=== PATIENT | male | born 1940 | race Caucasian/White ===

== ENCOUNTER 2017-12-22 15:32 | Inpatient (IN) ==
--- OUTSIDE RECORDS SUMMARY | 2017-12-22 15:43 | External Medical Summary | Referral Summary ---
:1940 Author Organization [facility] Address [address] [place] [address] [address] Care Team Providers Name Role Phone Joel Greenfield Primary Care Physician Encounter VC Date(s): 05/16/15 - 05/16/15 [facility] [address] [place] [address] [phone] [place] Discharge Diagnosis: BPH without obstruction/lower urinary tract symptoms Discharge Diagnosis: BPH with obstruction/lower urinary tract symptoms Discharge Disposition: 01-Home or Self Care Attending Physician: Dirk Carroll JR, MD Admitting Physician: Dirk Carroll JR, MD Referring Physician: Joel Greenfield MD Vital Signs Most recent to oldest [Reference Range]: 1 Peripheral Pulse Rate [60-100 bpm] 73 bpm (05/16/15 9:00 AM) Blood Pressure [90-140/60-90 mmHg] 146/86 mmHg *HI* (05/16/15 9:00 AM) Problem List Condition Effective Dates Status Health Status Informant Benign essential Active hypertension(Confirmed) Benign prostatic hypertrophy (BPH) Active with incomplete bladder emptying(Confirmed) hx of right epididymal testicular Active mass/cyst(Confirmed) hx of small bilateral Active hydroceles(Confirmed) Elevated glucose(Confirmed) Active Abscess and cellulitis(Confirmed) Active Allergies, Adverse Reactions, Alerts Substance Reaction Severity Status penicillin Unknown Active Medications aspirin 81 mg oral tablet tabs, Oral, Daily, 0 Refill(s) Start Date: 05/13/14 Status: Orderedatenolol 50 mg oral tablet See Instructions, TAKE ONE TABLET BY MOUTH EVERY DAY, # 90 tabs, 3 Refill(s), TAKE ONE TABLET BY MOUTH EVERY DAY Start Date: 01/31/15 Status: OrderedLotensin 40 mg oral tablet See Instructions, TAKE ONE TABLET BY MOUTH DAILY, # 90 tabs, 3 Refill(s), TAKE ONE TABLET BY MOUTH DAILY Start Date: 01/31/15 Status: Orderedlutein Oral, Daily, 0 Refill(s) Start Date: 05/13/14 Status: OrderedMelatonin Oral, Bedtime (once a day), 0 Refill(s) Start Date: 05/13/14 Status: Orderedsaw palmetto oral capsule 0 Refill(s) Start Date: 05/13/14 Status: Orderedtamsulosin 0.4 mg oral capsule 0.4 mg 1 caps, Oral, Bedtime (once a day), # 90 caps, 3 Refill(s), Pharmacy: [facility] #[id number], 1 caps Oral Bedtime (once a day) Start Date: 05/16/15 Status: Orderedterazosin 5 mg oral capsule See Instructions, TAKE ONE CAPSULE BY MOUTH EVERY DAY, # 90 caps, 3 Refill(s), TAKE ONE CAPSULE BY MOUTH EVERY DAY Start Date: 01/31/15 Status: Ordered Results No data available for this section Immunizations Vaccine Date Refusal Reason influenza virus vaccine, inactivated1 05/03/15 influenza virus vaccine, live 07/16/12 pneumococcal 23-polyvalent vaccine 06/03/03 1Location History: [facility] Procedures Procedure Date Related Diagnosis Body Site S/P colonoscopy1 04/09/07 H/O circumcision 1with cecum biopsy showing chronic inflammation, focal hyperplastic changes; repeat 10 years Social History Social History Type Response Smoking Status Former smoker1 1Many years ago. Assessment and Plan Extracted from: Title: Ambulatory Patient Education Author: Dirk Carroll JR, MD Date: Follow Up With: Where: When: Joel Greenfield [address] [place] [address] Drive; [place], [place] [id number] Business (1) Within 3 to 5 days Comments: Follow Up With: Where: When: Dirk Sanchez[address]; [place] [address] Business (1) In 1 year 05/16/2016 Comments: Extracted from: Title: Office Visit Note Author: Dirk Carroll JR, MD Date: 05/16/15 Assessment/Plan BPH with obstruction/lower urinary tract symptoms we will change Terazosin to tamsulosin 0.4 mg at bedtime number 90 pills given 2 refills for a year. Will recheck in my office in one year or sooner if needed. Continue taking the saw palmetto. PSA a week before next visit. Ordered: Office Visit Level 3 Est 08810 BPH without obstruction/lower urinary tract symptoms Orders: tamsulosin, 0.4 mg 1 caps, Oral, Bedtime (once a day), # 90 caps, 3 Refill(s), Pharmacy: [facility] #[id number], 1 caps Oral Bedtime (once a day) Prostate Specific Antigen
--- OUTSIDE RECORDS SUMMARY | 2017-12-22 15:43 | External Medical Summary | Referral Summary ---
:1940 [facility] Address [address] [place] [address] [address] Care Team Providers Name Role Phone Joel Greenfield Primary Care Physician Encounter VC Date(s): 06/05/15 - 06/05/15 [facility] [address] [phone]- Discharge Diagnosis: Abscess and cellulitis Discharge Disposition: 01-Home or Self Care Attending Physician: Joel Greenfield MD Admitting Physician: Joel Greenfield MD Vital Signs Most recent to oldest [Reference Range]: 1 Blood Pressure [90-140/60-90 mmHg] 128/80 mmHg (06/05/15 11:12 AM) Problem List Condition Effective Dates Status [...] day), 0 Refill(s) Start Date: 05/13/14 Status: Orderedjasvir suarez oral capsule 0 Refill(s) Start Date: 05/13/14 Status: Orderedtamsulosin 0.4 mg oral capsule 0.4 mg 1 caps, Oral, Bedtime (once a day), # 90 caps, 3 Refill(s), Pharmacy: [facility] #[id number], 1 caps Oral Bedtime (once a day) [...] Extracted from: Title: Ambulatory Patient Education Author: Joel Greenfield MD Date: Infectious Disease Impetigo Impetigo is an infection of the skin, most common in babies and children. CAUSES It is caused by staphylococcal or streptococcal germs (bacteria). Impetigo can start after any damage to the skin. The damage to the skin may be from things like: Chickenpox. Scrapes. Scratches. Insect bites (common when children scratch the bite). Cuts. Nail biting or chewing. Impetigo is contagious. It can be spread from one person to another. Avoid close skin contact, or sharing towels or clothing. SYMPTOMS Impetigo usually starts out as small blisters or pustules. Then they turn into tiny yellow-crusted sores (lesions). There may also be: Large blisters. Itching or pain. Pus. Swollen lymph glands. With scratching, irritation, or non-treatment, these small areas may get larger. Scratching can cause the germs to get under the fingernails; then scratching another part of the skin can cause the infection to be spread there. DIAGNOSIS Diagnosis of impetigo is usually made by a physical exam. A skin culture (test to grow bacteria) may be done to prove the diagnosis or to help decide the best treatment. TREATMENT Mild impetigo can be treated with prescription antibiotic cream. Oral antibiotic medicine may be used in more severe cases. Medicines for itching may be used. HOME CARE INSTRUCTIONS To avoid spreading impetigo to other body areas: Keep fingernails short and clean. Avoid scratching. Cover infected areas if necessary to keep from scratching. Gently wash the infected areas with antibiotic soap and water. Soak crusted areas in warm soapy water using antibiotic soap. Gently rub the areas to remove crusts. Do not scrub. Wash hands often to avoid spread this infection. Keep children with impetigo home from school or daycare until they have used an antibiotic cream for 48 hours (2 days) or oral antibiotic medicine for 24 hours (1 day), and their skin shows significant improvement. Children may attend school or daycare if they only have a few sores and if the sores can be covered by a bandage or clothing. SEEK MEDICAL CARE IF: More blisters or sores show up despite treatment. Other family members get sores. Rash is not improving after 48 hours (2 days) of treatment. SEEK IMMEDIATE MEDICAL CARE IF: You see spreading redness or swelling of the skin around the sores. You see red streaks coming from the sores. Your child develops a fever of 100.4 F (37.2 C) or higher. Your child develops a sore throat. Your child is acting ill (lethargic, sick to their stomach). Document Released: 07/25/2001 Document Revised: 10/19/2012 Document Reviewed: 11/02/2014 ExitCare Patient Information 2015 [employer] [facility]. This information is not intended to replace advice given to you by your health care provider. Make sure you discuss any questions you have with your health care provider. No follow up information was provided. Extracted from: Title: Office Visit Note Author: Joel Greenfield MD Date: 06/05/15 Assessment/Plan Abscess and cellulitis, Other impetigo Suggest to clean the hair from the site and treat with Bactroban ointment and Cipro 500mg bid. Ordered: Office Visit Level 3 Est [id number] Orders: ciprofloxacin, 500 mg 1 tabs, Oral, BID, X 12 days, # 24 tabs, 0 Refill(s) mupirocin topical, 1 migue, Topical, TID, X 15 days, # 30 g, 0 Refill(s)
--- OUTSIDE RECORDS SUMMARY | 2017-12-22 15:43 | External Medical Summary | Referral Summary ---
:1940 Author Organization [facility] Address [address] [place] [address] [address] Care Team Providers Name Role Phone Joel Greenfield Primary Care Physician Encounter VC Date(s): 01/31/15 - 01/31/15 [facility] [phone] [place] Discharge Disposition: 01-Home or Self Care Attending Physician: Joel Greenfield MD Admitting Physician: Joel Greenfield MD Vital Signs Most recent to oldest [Reference Range]: 1 Blood Pressure [90-140/60-90 mmHg] 126/82 mmHg (01/31/15 9:13 AM) Problem List Condition Effective Dates Status [...] day), # 90 caps, 3 Refill(s), Pharmacy: [facility] #[id number], 1 caps Oral Bedtime (once a day) [...] 07/16/12 pneumococcal 23-polyvalent vaccine 06/03/03 1Location History: [place] Procedures Procedure Date Related Diagnosis Body Site S/P colonoscopy1 04/09/07 H/O circumcision 1with cecum biopsy showing chronic inflammation, focal hyperplastic changes; repeat 10 years Social History Social History Type Response Smoking Status Former smoker1 1Many years ago. Assessment and Plan Extracted from: Title: Ambulatory Patient Education Author: Joel Greenfield MD Date: Family Medicine Benign Prostatic Hypertrophy The prostate gland is part of the reproductive system of men. A normal prostate is about the size and shape of a walnut. The prostate gland produces a fluid that is mixed with sperm to make semen. This gland surrounds the urethra and is located in front of the rectum and just below the bladder. The bladder is where urine is stored. The urethra is the tube through which urine passes from the bladder to get out of the body. The prostate grows as a man ages. An enlarged prostate not caused by cancer is called benign prostatic hypertrophy (BPH). An enlarged prostate can press on the urethra. This can make it harder to pass u rine. In the early stages of enlargement, the bladder can get by with a narrowed urethra by forcing the urine through. If the problem gets worse, medical or surgical treatment may be required. This condition should be followed by your health care provider. The accumulation of urine in the bladder can cause infection. Back pressure and infection can progress to bladder damage and kidney (renal ) failure. If needed, your health care provider may refer you to a specialist in kidney and prostate disease (urologist ). CAUSES BPH is a common health problem in men older than 50 years. This condition is a normal part of aging. However, not all men will develop problems from this condition. If the enlargement grows away from th e urethra, then there will not be any compression of the urethra and resistance to urine flow.If the growth is toward the urethra and compresses it , you will experience difficulty urinating. SYMPTOMS Not able to completely empty your bladder. Getting up often during the night to urinate. Need to urinate frequently during the day. Difficultly starting urine flow. Decrease in size and strength of your urine stream. Dribbling after urination. Pain on urination (more common with infection). Inability to pass urine. This needs immediate treatment. The development of a urinary tract infection. DIAGNOSIS These tests will help your health care provider understand your problem: A thorough history and physical examination. A urination history, with the number of times you urinate, the amounts of urine, the strength of the urine stream, and the feeling of emptiness or fullness after urinating. A postvoid bladder scan that measures any amount of urine that may remain in your bladder after you finish urinating. Digital rectal exam. In a rectal exam, your health care provider checks your prostate by putting a gloved, lubricated finger into your rectum to feel the back of your prostate gland. This exam dete cts the size of your gland and abnormal lumps or growths. Exam of your urine (urinalysis ). Prostate specific antigen (PSA) screening. This is a blood test used to screen for prostate cancer. Rectal ultrasonography. This test uses sound waves to electronically produce a picture of your prostate gland. TREATMENT Once symptoms begin, your health care provider will monitor your condition. Of the men with this condition, one third will have symptoms that stabilize, one third will have symptoms that improve, and on e third will have symptoms that progress in the first year. Mild symptoms may not need treatment. Simple observation and yearly exams may be all that is required. Medicines and surgery are options for more severe problems. Your health care provider can help you make an informed decision for what is best. Two classes of medicines are available for relief of prostate symptoms: Medicines that shrink the prostate. This helps relieve symptoms. These medicines take time to work, and it may be months before any improvement is seen. Uncommon side effects include problems with sexual function. Medicines to relax the muscle of the prostate. This also relieves the obstruction by reducing any compression on the urethra.This group of medicines work much faster than those that reduce the si ze of the prostate gland. Usually, one can experience improvement in days to weeks.. Side effects can include dizziness, fatigue, lightheadedness, and retrograde ejaculation (diminished volume of ejaculate). Several types of surgical treatments are available for relief of prostate symptoms: Transurethral resection of the prostate (TURP)In this treatment, an instrument is inserted through opening at the tip of the penis. It is used to cut away pieces of the inner core of the prostat e. The pieces are removed through the same opening of the penis. This removes the obstruction and helps get rid of the symptoms. Transurethral incision (TUIP)In this procedure, small cuts are made in the prostate. This lessens the prostates pressure on the urethra. Transurethral microwave thermotherapy (TUMT)This procedure uses microwaves to create heat. The heat destroys and removes a small amount of prostate tissue. Transurethral needle ablation (TUNA)This is a procedure that uses radio frequencies to do the same as TUMT. Interstitial laser coagulation (ILC)This is a procedure that uses a laser to do the same as TUMT and TUNA. Transurethral electrovaporization (TUVP)This is a procedure that uses electrodes to do the same as the procedures listed above. SEEK MEDICAL CARE IF: You develop a fever. There is unexplained back pain. Symptoms are not helped by medicines prescribed. You develop side effects from the medicine you are taking. Your urine becomes very dark or has a bad smell. Your lower abdomen becomes distended and you have difficulty passing your urine. SEEK IMMEDIATE MEDICAL CARE IF: You are suddenly unable to urinate. This is an emergency. You should be seen immediately. There are large amounts of blood or clots in the urine. Your urinary problems become unmanageable. You develop lightheadedness, severe dizziness, or you feel faint. You develop moderate to severe low back or flank pain. You develop chills or fever. Document Released: 07/28/2006 Document Revised: 05/18/2014 Document Reviewed: 02/10/2014 [facility] Patient Information 2014 [employer] [facility]. Arterial Hypertension Arterial hypertension (high blood pressure ) is a condition of elevated pressure in your blood vessels. Hypertension over a long period of time is a risk factor for strokes, heart attacks, and heart marianna lure. It is also the leading cause of kidney (renal ) failure. CAUSES In Adults -- Over 90% of all hypertension has no known cause. This is called essential or primary hypertension. In the other 10% of people with hypertension, the increase in blood pressure is cause d by another disorder. This is called secondary hypertension . Important causes of secondary hypertension are: Heavy alcohol use. Obstructive sleep apnea. Hyperaldosterosim (Conn's syndrome). Steroid use. Chronic kidney failure. Hyperparathyroidism. Medications. Renal artery stenosis. Pheochromocytoma. Mineral's disease. Coarctation of the aorta. Scleroderma renal crisis. Licorice (in excessive amounts). Drugs (cocaine, methamphetamine). Your caregiver can explain any items above that apply to you. In Children -- Secondary hypertension is more common and should always be considered. -- Few women of childbearing age have high blood pressure. However, up to 10% of them develop hypertension of . Generally, this will not harm the woman. It may be a sign of 3 com plications of : preeclampsia, HELLP syndrome, and eclampsia. Follow up and control with medication is necessary. SYMPTOMS This condition normally does not produce any noticeable symptoms. It is usually found during a routine exam. Malignant hypertension is a late problem of high blood pressure. It may have the following symptoms: Headaches. Blurred vision. End-organ damage (this means your kidneys, heart, lungs, and other organs are being damaged). Stressful situations can increase the blood pressure. If a person with normal blood pressure has their blood pressure go up while being seen by their caregiver, this is often termed "white coat hyp ertension." Its importance is not known. It may be related with eventually developing hypertension or complications of hypertension. Hypertension is often confused with mental tension, stress, and anxiety. DIAGNOSIS The diagnosis is made by 3 separate blood pressure measurements. They are taken at least 1 week apart from each other. If there is organ damage from hypertension, the diagnosis may be made without repeat measurements. Hypertension is usually identified by having blood pressure readings: Above 140/90 mmHg measured in both arms, at 3 separate times, over a couple weeks. Over 130/80 mmHg should be considered a risk factor and may require treatment in patients with diabetes. Blood pressure readings over 120/80 mmHg are called "pre-hypertension" even in non-diabetic patients. To get a true blood pressure measurement, use the following guidelines. Be aware of the factors that can alter blood pressure readings. Take measurements at least 1 hour after caffeine. Take measurements 30 minutes after smoking and without any stress. This is another reason to quit smoking it raises your blood pressure. Use a proper cuff size. Ask your caregiver if you are not sure about your cuff size. Most home blood pressure cuffs are automatic. They will measure systolic and diastolic pressures. The systolic pressure is the pressure reading at the start of sounds. Diastolic pressure is the pre ssure at which the sounds disappear. If you are elderly, measure pressures in multiple postures. Try sitting, lying or standing. Sit at rest for a minimum of 5 minutes before taking measurements. You should not be on any medications like decongestants. These are found in many cold medications. Record your blood pressure readings and review them with your caregiver. If you have hypertension: Your caregiver may do tests to be sure you do not have secondary hypertension (see "causes" above). Your caregiver may also look for signs of metabolic syndrome. This is also called Syndrome X or Insulin Resistance Syndrome. You may have this syndrome if you have type 2 diabetes, abdominal obesit y, and abnormal blood lipids in addition to hypertension. Your caregiver will take your medical and family history and perform a physical exam. Diagnostic tests may include blood tests (for glucose, cholesterol, potassium, and kidney function), a urinalysis, or an EKG. Other tests may also be necessary depending on your condition. PREVENTION There are important lifestyle issues that you can adopt to reduce your chance of developing hypertension: Maintain a normal weight. Limit the amount of salt (sodium ) in your diet. Exercise often. Limit alcohol intake. Get enough potassium in your diet. Discuss specific advice with your caregiver. Follow a DASH diet (dietary approaches to stop hypertension). This diet is rich in fruits, vegetables, and low-fat dairy products, and avoids certain fats. PROGNOSIS Essential hypertension cannot be cured. Lifestyle changes and medical treatment can lower blood pressure and reduce complications. The prognosis of secondary hypertension depends on the underlying cause . Many people whose hypertension is controlled with medicine or lifestyle changes can live a normal, healthy life. RISKS AND COMPLICATIONS While high blood pressure alone is not an illness, it often requires treatment due to its short- and long-term effects on many organs. Hypertension increases your risk for: CVAs or strokes (cerebrovascular accident ). Heart failure due to chronically high blood pressure (hypertensive cardiomyopathy ). Heart attack (myocardial infarction ). Damage to the retina (hypertensive retinopathy ). Kidney failure (hypertensive nephropathy ). Your caregiver can explain list items above that apply to you. Treatment of hypertension can significantly reduce the risk of complications. TREATMENT For overweight patients, weight loss and regular exercise are recommended. Physical fitness lowers blood pressure. Mild hypertension is usually treated with diet and exercise. A diet rich in fruits and vegetables, fat-free dairy products, and foods low in fat and salt (sodium ) can help lower blood pressure. De creasing salt intake decreases blood pressure in a 1/3 of people. Stop smoking if you are a smoker. The steps above are highly effective in reducing blood pressure. While these actions are easy to suggest, they are difficult to achieve. Most patients with moderate or severe hypertension end up requiri ng medications to bring their blood pressure down to a normal level. There are several classes of medications for treatment. Blood pressure pills ( antihypertensives ) will lower blood pressure by their different actions. Lowering the blood pressure by 10 mmHg may decrease the risk of complications by as much as 25%. The goal of treatment is effective blood pressure control. This will reduce your risk for complications. Your caregiver will help you determine the best treatment for you according to your lifestyle. Wh at is excellent treatment for one person, may not be for you. HOME CARE INSTRUCTIONS Do not smoke. Follow the lifestyle changes outlined in the "Prevention" section. If you are on medications, follow the directions carefully. Blood pressure medications must be taken as prescribed. Skipping doses reduces their benefit. It also puts you at risk for problems. Follow up with your caregiver, as directed. If you are asked to monitor your blood pressure at home, follow the guidelines in the "Diagnosis" section above. SEEK MEDICAL CARE IF: You think you are having medication side effects. You have recurrent headaches or lightheadedness. You have swelling in your ankles. You have trouble with your vision. SEEK IMMEDIATE MEDICAL CARE IF: You have sudden onset of chest pain or pressure, difficulty breathing, or other symptoms of a heart attack. You have a severe headache. You have symptoms of a stroke (such as sudden weakness, difficulty speaking, difficulty walking). MAKE SURE YOU: Understand these instructions. Will watch your condition. Will get help right away if you are not doing well or get worse. Document Released: 07/28/2006 Document Revised: 10/19/2012 Document Reviewed: 02/25/2008 [employer] Patient Information 2014 [employer] [facility]. No follow up information was provided. Extracted from: Title: Office Visit Note Author: Joel Greenfield MD Date: 01/31/15 Assessment/Plan Benign essential hypertension Continue with the current medications. Suggest a full physical in 6 months. Ordered: Office Visit Level 4 Est 35462 Benign prostatic hypertrophy (BPH) with incomplete bladder emptying Ordered: Office Visit Level 4 Est 09221 Orders: atenolol, See Instructions, TAKE ONE TABLET BY MOUTH EVERY DAY, # 90 tabs, 3 Refill(s), TAKE ONE TABLET BY MOUTH EVERY DAY benazepril, See Instructions, TAKE ONE TABLET BY MOUTH DAILY, # 90 tabs, 3 Refill(s), TAKE ONE TABLET BY MOUTH DAILY terazosin, See Instructions, TAKE ONE CAPSULE BY MOUTH EVERY DAY, # 90 caps, 3 Refill(s), TAKE ONE CAPSULE BY MOUTH EVERY DAY
--- OUTSIDE RECORDS SUMMARY | 2017-12-22 15:43 | External Medical Summary | Referral Summary ---
:1940 Author Organization [facility] [address] Care Team Providers Name Role Phone Joel Greenfield Primary Care Physician Encounter VC Date(s): 05/07/16 - 05/07/16 [facility] [address] [phone] [place] Discharge Disposition: 01-Home or Self Care Attending Physician: Joel Greenfield MD Admitting Physician: Joel Greenfield MD Vital Signs Most recent to oldest [Reference Range]: 1 Blood Pressure [90-140/60-90 mmHg] 140/80 mmHg (05/07/16 4:07 PM) Problem List Condition Effective Dates Status Health [...] TABLET BY MOUTH EVERY DAY Start Date: 03/05/16 Status: Orderedbenazepril 40 mg oral tablet See Instructions, TAKE ONE TABLET BY MOUTH DAILY Pt needs appointment for more refills, # 90 tabs, 3 Refill(s), TAKE ONE TABLET BY MOUTH DAILY; Pt needs appointment for more refills Start Date: 03/05/16 Status: OrderedCipro 500 mg oral tablet 500 mg 1 tabs, Oral, q12hr, X 14 days, # 28 tabs, 2 Refill(s), Pharmacy: [facility] #[id number], 1tabs Oral q12hr,x14 days Start Date: 05/07/16 Stop Date: 06/18/16 Status: Orderedlutein Oral, Daily, 0 Refill(s) Start Date: 05/13/14 Status: OrderedMelatonin Oral, Bedtime (once a day), 0 Refill(s) Start Date: 05/13/14 Status: Orderedsaw palmetto oral capsule 0 Refill(s) Start Date: 05/13/14 Status: Orderedtamsulosin 0.4 mg oral capsule 0.4 mg 1 caps, Oral, Bedtime (once a day), # 90 caps, 3 Refill(s), Pharmacy: [facility] #[id number], 1 caps Oral Bedtime (once a day) Start Date: 05/07/16 Status: Orderedterazosin 5 mg oral capsule See Instructions, TAKE ONE CAPSULE BY MOUTH EVERY DAY, # 90 tabs, 3 Refill(s), TAKE ONE CAPSULE BY MOUTH EVERY DAY Start Date: 03/05/16 Status: Ordered Results No data available for [...] smoker1 1Many years ago. Assessment and Plan No data available for this section
--- OUTSIDE RECORDS SUMMARY | 2017-12-22 15:43 | External Medical Summary | Referral Summary ---
:1940 Author Organization [facility] [address] Care Team Providers Name Role Phone Joel Greenfield Primary Care Physician Encounter VC Date(s): 02/20/15 - 02/20/15 [facility] [phone] Discharge Diagnosis: Cellulitis Discharge Disposition: 01-Home or Self Care Attending Physician: Christine Carroll APRN Admitting Physician: Christine Carroll APRN Vital Signs Most recent to oldest [Reference Range]: 1 Peripheral Pulse Rate [60-100 bpm] 70 bpm (02/20/15 10:24 AM) Blood Pressure [90-140/60-90 mmHg] 124/80 mmHg (02/20/15 10:24 AM) Problem List Condition Effective Dates Status [...] day), # 90 caps, 3 Refill(s), Pharmacy: [facility] #[id number], 1 caps Oral Bedtime (once a day) [...]
--- OUTSIDE RECORDS SUMMARY | 2017-12-22 15:44 | External Medical Summary | Referral Summary ---
:1940 Author Organization [facility] [place] [address] [address] Care Team Providers Name Role Phone Bari Saenz Primary Care Physician Encounter VC Date(s): 02/17/17 - 02/17/17 [facility] [place] [address] [address] Discharge Diagnosis: Elevated glucose Discharge Diagnosis: Benign prostatic hypertrophy (BPH) with incomplete bladder emptying Discharge Diagnosis: Benign essential hypertension Discharge Diagnosis: Prostate cancer screening Discharge Diagnosis: Chronic idiopathic constipation Discharge Diagnosis: Lipid screening Discharge Disposition: 01-Home or Self Care Attending Physician: Christal Blevins PA-C Admitting Physician: Christal Blevins PA-C Vital Signs Most recent to oldest [Reference Range]: 1 Temperature Tympanic [36.6-38.1 degC] 37.1 degC (02/17/17 8:24 AM) Peripheral Pulse Rate [60-100 bpm] 68 bpm (02/17/17 8:24 AM) Blood Pressure [90-140/60-90 mmHg] 141/69 mmHg *HI* (02/17/17 8:24 AM) Problem List Condition Effective Dates Status Health Status Informant Benign essential Active hypertension(Confirmed) Benign prostatic hypertrophy (BPH) Active with incomplete bladder emptying(Confirmed) Chronic idiopathic Active constipation(Confirmed) hx of right epididymal testicular Active mass/cyst(Confirmed) hx of small bilateral Active hydroceles(Confirmed) Elevated glucose(Confirmed) Active Abscess and cellulitis(Confirmed) Active Allergies, Adverse Reactions, Alerts Substance Reaction Severity Status penicillin Unknown Active Medications aspirin 81 mg oral tablet tabs, Oral, Daily, 0 Refill(s) Start Date: 05/13/14 Status: Orderedatenolol 50 mg oral tablet See Instructions, TAKE ONE TABLET BY MOUTH EVERY DAY, # 90 tabs, 0 Refill(s), Pharmacy: [facility] #[id number], TAKE ONE TABLET BY MOUTH EVERY DAY Start Date: 02/17/17 Status: Orderedbenazepril 40 mg oral tablet See Instructions, TAKE ONE TABLET BY MOUTH DAILY, # 90 tabs, 0 Refill(s), Pharmacy: [facility]#[id number], TAKE ONE TABLET BY MOUTH DAILY Start Date: 02/17/17 Status: OrderedLinzess 145 mcg oral capsule 145 mcg 1 caps, Oral, Daily, # 30 caps, 5 Refill(s), Pharmacy: [facility] #[id number], 1 caps OralDaily Start Date: 01/21/17 Status: Orderedlutein Oral, Daily, 0 Refill(s) Start Date: 05/13/14 Status: OrderedMelatonin Oral, Bedtime (once a day), 0 Refill(s) Start Date: 05/13/14 Status: Orderedsaw palmetto oral capsule 0 Refill(s) Start Date: 05/13/14 Status: Orderedtamsulosin 0.4 mg oral capsule 0.4 mg 1 caps, Oral, Bedtime (once a day), # 90 caps, 3 Refill(s), Pharmacy: [facility] #[id number], 1 caps Oral Bedtime (once a day) Start Date: 05/07/16 Status: Orderedterazosin 5 mg oral capsule See Instructions, TAKE ONE CAPSULE BY MOUTH EVERY DAY, # 90 tabs, 0 Refill(s), Pharmacy: [facility] #[id number], TAKE ONE CAPSULE BY MOUTH EVERY DAY Start Date: 02/17/17 Status: Ordered Results No data available for this section Immunizations Given and Recorded Vaccine Date Status Refusal Reason influenza virus vaccine, inactivated 09/12/16 Given influenza virus vaccine, inactivated1 05/03/15 Recorded influenza virus vaccine, live 07/16/12 Given pneumococcal 13-valent conjugate vaccine 09/12/16 Given pneumococcal 23-polyvalent vaccine 06/03/03 Recorded 1Location History: [facility] Procedures Procedure Date Related Diagnosis Body Site S/P colonoscopy1 04/09/07 H/O circumcision 1with cecum biopsy showing chronic inflammation, focal hyperplastic changes; repeat 10 years Social History Social History Type Response Smoking Status Former smoker1 1Many years ago. Assessment and Plan Extracted from: Title: Office Visit Note- Med ck Author: Christal Blevins PA-C Date: 02/17 Assessment/Plan Benign essential hypertension BP was slightly elevated today. Recommended that he check BP's at home, and call or RTC if consistently >140/90. Continue with current medications. Will check lab at the end of this month. Ordered: atenolol, See Instructions, TAKE ONE TABLET BY MOUTH EVERY DAY, # 90 tabs, 0 Refill(s), Pharmacy: [facility] #[id number], TAKE ONE TABLET BY MOUTH EVERY DAY benazepril, See Instructions, TAKE ONE TABLET BY MOUTH DAILY, # 90 tabs, 0 Refill(s), Pharmacy: [facility] #[id number], TAKE ONE TABLET BY MOUTH DAILY terazosin, See Instructions, TAKE ONE CAPSULE BY MOUTH EVERY DAY, # 90 tabs, 0 Refill(s), Pharmacy: [facility] #[id number], TAKE ONE CAPSULE BY MOUTH EVERY DAY Comprehensive Metabolic Panel Lipid Panel Office Visit Level 4 Est 98456 Benign prostatic hypertrophy (BPH) with incomplete bladder emptying Doing well with medication. I agree that he probably does not need to follow with Urology unless something changes. Continue with current meds. Ordered: Office Visit Level 4 Est 37830 Prostate Specific Antigen Chronic idiopathic constipation Doing well with the Linzess at this time. May continue with this for now. Ordered: Office Visit Level 4 Est 60734 Elevated glucose Will also check A1C at end of this month as well. Has been slightly elevated in the past. Ordered: Comprehensive Metabolic Panel Hemoglobin A1c Office Visit Level 4 Est 53621 Lipid screening Hasn't had lipids checked inseveral years. Dr. Greenfield hadtold him that he didn't need to check it anymore. He is agreeable to check this with his other labs at the end of the month. Ordered: Lipid Panel Office Visit Level 4 Est 34089 Prostate cancer screening Will also check PSA per pt request. But not due until 03/05. Ordered: Office Visit Level 4 Est 69405 Prostate Specific Antigen Pt will be establishing with new PCP (Dr. Saenz) next week.
--- OUTSIDE RECORDS SUMMARY | 2017-12-22 15:44 | External Medical Summary | Continuity of Care Document ---
:1940 Author Organization [facility] Allergies Active Description Code Type Severity Reaction Onset Reported/ Identified Relationship Clinical to Patient Status Yes penicillin NKMA N/A Unknown 12/08/2013 Yes Penicillins Aller I Swelling 02/10/2017 gy Medications Medication Packaging Start Stop Route Dosage Sig Date Date tabs 06/28/20 Oral mg atenolol(atenolol 4 14 tabs, Oral, 50 mg oral Daily tablet) tabs 11/09/19 Oral mg benazepril(Lotens 4 15 tabs, Oral, in 40 mg oral Daily tablet) tabs Oral mg aspirin(aspirin 4 tabs, Oral, 81 mg oral Daily tablet) Oral lutein(lutein) 4 Oral, Daily caps 07/12/20 Oral mg terazosin(terazos 4 14 caps, Oral, in 5 mg oral Bedtime capsule) (once a day) 01/04/20 atenolol(atenolol 4 15 See 50 mg oral Instruction tablet) s, TAKE ONE TABLET BY MOUTH EVERY DAY, 90 tabs 02/01/20 terazosin(terazos 4 15 See in 5 mg oral Instruction capsule) s, TAKE ONE CAPSULE BY MOUTH EVERY DAY, 90 caps, 2 Refill(s) 02/01/20 benazepril(Lotens 5 15 See in 40 mg oral Instruction tablet) s, TAKE ONE TABLET BY MOUTH DAILY, 90 tabs 02/01/20 atenolol(atenolol 5 15 See 50 mg oral Instruction tablet) s, TAKE ONE TABLET BY MOUTH EVERY DAY, 90 tabs 03/05/20 atenolol(atenolol 5 16 See 50 mg oral Instruction tablet) s, TAKE ONE TABLET BY MOUTH EVERY DAY, 90 tabs, 3 Refill(s) 06/23/201 06/29/20 benazepril(Lotens 5 16 See in 40 mg oral Instruction tablet) s, TAKE ONE TABLET BY MOUTH DAILY, 90 tabs, 3 Refill(s) 03/05/20 terazosin(terazos 5 16 See in 5 mg oral Instruction capsule) s, TAKE ONE CAPSULE BY MOUTH EVERY DAY, 90 caps, 3 Refill(s) 1 tabs 03/02/20 Oral sulfamethoxazole- 5 15 1 tabs, trimethoprim(Bact Oral, BID, rim DS 800 mg-160 for 10 mg oral tablet) days, 20 tabs, 0 Refill(s) 1 tabs 03/24/20 Oral 500 mg ciprofloxacin(Cip 5 15 500 mg=1 ro 500 mg oral tabs, Oral, tablet) q12hr, for 10 days, 20 tabs, 0 Refill(s) 1 migue 05/09/20 Nasal mupirocin 5 15 1 migue, topical(Bactroban Nasal, TID, 2% nasal 15 g, 0 ointment) Refill(s) 1 caps 05/07/20 Oral 0.4 mg tamsulosin(tamsul 5 16 0.4 mg=1 osin 0.4 mg oral caps, Oral, capsule) Bedtime (once a day), 90 caps, 3 Refill(s) 1 tabs 06/17/20 Oral 500 mg ciprofloxacin(Cip 5 15 500 mg=1 ro 500 mg oral tabs, Oral, tablet) BID, for 12 days, 24 tabs, 0 Refill(s) 1 migue 06/20/20 Topical mupirocin 5 15 1 migue, topical(mupirocin Topical, 2% topical TID, for 15 ointment) days, 30 g, 0 Refill(s) 02/18/20 atenolol(atenolol 6 17 See 50 mg oral Instruction tablet) s, TAKE ONE TABLET BY MOUTH EVERY DAY, 90 tabs, 3 Refill(s) 06/18/20 benazepril(benaze 6 16 See pril 40 mg oral Instruction tablet) s, TAKE ONE TABLET BY MOUTH DAILY, 90 tabs, 3 Refill(s) 02/18/20 terazosin(terazos 6 17 See in 5 mg oral Instruction capsule) s, TAKE ONE CAPSULE BY MOUTH EVERY DAY, 90 tabs, 3 Refill(s) 1 tabs 06/18/20 Oral 500 mg ciprofloxacin(Cip 6 16 500 mg=1 ro 500 mg oral tabs, Oral, tablet) q12hr, for 14 days, 28 tabs, 2 Refill(s) 1 caps Oral 0.4 mg tamsulosin(tamsul 6 0.4 mg=1 osin 0.4 mg oral caps, Oral, capsule) Bedtime (once a day), 90 caps, 3 Refill(s) 1 tabs 09/16/19 Oral 40 mg benazepril(benaze 7 17 40 mg=1 pril 40 mg oral tabs, Oral, tablet) Daily, 90 tabs, 1 Refill(s) 0.5 mL 09/12/19 IntraMuscular pneumococcal 7 17 0.5 mL, 13-valent IntraMuscul conjugate ar, Once vaccine(Prevnar 13 intramuscular suspension) 0.5 mL 09/12/19 IntraMuscular influenza virus 7 17 0.5 mL, vaccine, IntraMuscul inactivated(influ ar, Once damien virus vaccine, inactivated) 2 caps 02/18/20 Oral 200 mg docusate(docusate 7 17 200 mg=2 sodium 100 mg caps, Oral, oral capsule) Daily, PRN: as needed for constipatio n, 20 caps, 0 Refill(s) 1 caps 02/18/20 Oral 145 mcg linaclotide(Linze 7 17 145 mcg=1 ss 145 mcg oral caps, Oral, capsule) Daily, 30 caps, 0 Refill(s) PO 5 mg Hytrin 7 .qd PO 50 mg Tenormin 7 Q24H PO 5 mg Melatonin 7 PO 81 mg Aspirin 7 .qd PO 6 mg Lutein 7 BID Saw PO 160 mg [place] 7 .qd PO 0.4 mg Flomax 7 Q24H PO 145 mcg Linzess 7 QAM PO 40 mg Benazepril HCl 7 .qd benazepril(benaze 7 See pril 40 mg oral Instruction tablet) s, TAKE ONE TABLET BY MOUTH DAILY, 90 tabs, 0 Refill(s) terazosin(terazos 7 See in 5 mg oral Instruction capsule) s, TAKE ONE CAPSULE BY MOUTH EVERY DAY, 90 tabs, 0 Refill(s) atenolol(atenolol 7 See 50 mg oral Instruction tablet) s, TAKE ONE TABLET BY MOUTH EVERY DAY, 90 tabs, 0 Refill(s) Problems Date Dx Attending Type Code Diagnosis Diagnosed By Coded 05/12/2016 Joel Greenfield Final J34.0 Abscess, furuncle F and carbuncle of nose 09/12/2016 Gen, Final I10 Essential (primary) Christal M hypertension 09/12/2016 Gen, Final N40.1 Benign prostatic Christal M hyperplasia with lower urinary tract symptoms 09/12/2016 Gen, Final Z23 Encounter for Christal M immunization 01/13/2017 Gen, Final K59.04 Chronic idiopathic Christal M constipation 02/17/2017 Gen, Final I10 Essential (primary) Christal M hypertension 02/17/2017 Gen, Final K59.04 Chronic idiopathic Christal M constipation 02/17/2017 Gen, Final N40.1 Benign prostatic Christal M hyperplasia with lower urinary tract symptoms 02/17/2017 Gen Final R73.09 Other abnormal Christal M glucose 02/17/2017 Gen, Final Z12.5 Encounter for Christal M screening for malignant neoplasm of prostate 02/17/2017 Gen, Final Z13.220 Encounter for Christal M screening for lipoid disorders 02/26/2017 Bari Saenz Final I10 Essential (primary) W hypertension 02/26/2017 Bari Saenz Final K59.04 Chronic idiopathic W constipation 02/26/2017 Bari Saenz Final N40.1 Benign prostatic W hyperplasia with lower urinary tract symptoms 02/26/2017 Bari Saenz Final R73.09 Other abnormal W glucose Procedures Code Description [place] [address] Office or 03/05/2016 other outpatient visit for the evaluation and management of an established patient, which requires at least 2 of these 3 tobar components: A detailed history; A detailed examination; Medical d Office or 05/07/2016 other outpatient visit for the evaluation and management of an established patient, which requires at least 2 of these 3 tobar components: An expanded problem focused history; An expanded prob 50221 Immunization 09/12/2016 administration (includes percutaneous, intradermal, subcutaneous, or intramuscular injections); each additional vaccine (single or combination vaccine/toxoid) (List separately in addition 29962 Influenza 09/12/2016 virus vaccine, trivalent, split virus, preservativ 12675 Pneumococcal 09/12/2016 conjugate vaccine, 13 valent (PCV13), for intramuscular use Office or 09/12/2016 other outpatient visit for the evaluation and management of an established patient, which requires at least 2 of these 3 tobar components: An expanded problem focused history; An expanded prob G0008 ADMINISTRATION 09/12/2016 OF INFLUENZA VIRUS VACCINE G0009 MC ADMIN 09/12/2016 PNEUMOVAC VACCINE 92960 Radiologic 01/13/2017 examination, abdomen; complete, including decubitus and/or erect views.. Office or 01/13/2017 other outpatient visit for the evaluation and management of an established patient, which requires at least 2 of these 3 tobar components: An expanded problem focused history; An expanded prob Office or 02/17/2017 other outpatient visit for the evaluation and management of an established patient, which requires at least 2 of these 3 tobar components: A detailed history; A detailed examination; Medical d Office or 02/26/2017 other outpatient visit for the evaluation and management of an established patient, which requires at least 2 of these 3 tobar components: A detailed history; A detailed examination; Medical d Results Test Result Range Lipid Panel - 03/05/17 07:45 Cardiac Risk 2.3 0.0-5.7 Cholesterol 157 mg/dL 0-199 HDL Cholesterol 68 mg/dL 40-84 LDL Cholesterol 79 mg/dL 0-130 Triglycerides 51 mg/dL 0-149 VLDL Cholesterol 10 mg/dL 0-28 Comprehensive Metabolic Panel (CMP) - 03/05/17 07:45 Albumin 4.1 g/dL 3.4-4.8 Alkaline Phosphatase 72 U/L 40-150 ALT (SGPT) 12 U/L 0-55 Anion Gap 6 mEq/L 3-20 AST (SGOT) 17 U/L 5-34 Bilirubin Total 0.7 mg/dL 0.2-1.2 BUN 17 mg/dL 8-26 Calcium 9.0 mg/dL 8.4-10.2 Chloride 106 mEq/L 99-111 CO2 27 mEq/L 23-31 Creatinine 0.96 mg/dL 0.72-1.25 Globulin 2.7 g/dL 1.8-4.0 Glucose 99 mg/dL 70-99 Potassium 4.6 mEq/L 3.5-5.2 Protein 6.8 g/dL 6.0-7.6 Sodium 139 mEq/L 135-144 eGFR - 03/05/17 07:45 eGFR >60 mL/min >60 PSA - 03/05/17 07:45 PSA 0.6 ng/mL 0.0-6.5 Hemoglobin A1C - 03/05/17 07:45 Hemoglobin A1C 5.9 % 4.1-5.6 Estimated Average Glucose - 03/05/17 07:45 Estimated Average Glucose 122.6 mg/dL Encounters ACCT No. Visit Discharge Status Pt. Type Provider Facility Loc./Unit Complaint Date/Time [id number] 03/05/2017 03/05/2017 DIS Outpatie [place] [facility] New lab 048 07:40:00 23:59:00 Christal [facility] [id number] 02/26/2017 02/26/2017 DIS Outpatie [place], [facility] EST WAS RFS 138 08:46:00 23:59:00 serena Ortiz PT Clinic [id number] 02/17/2017 02/17/2017 DIS Outpatie [place] [facility] BLOOD 599 08:18:00 23:59:00 Christal lyons PRESSURE MED M Clinic CHECK [id number] 01/13/2017 01/13/2017 DIS Outpatie [place] [facility] Constipation 638 09:02:00 23:59:00 Christal lyons M Clinic [id number] 09/12/2016 09/12/2016 DIS Outpatie [place] [facility] New FM BP MED CHANO 006 09:14:00 23:59:00 nt , Christal Ortiz M Clinic [id number] 05/07/2016 05/07/2016 DIS Outpatie [place], [facility] New FM TCPA 446 16:02:00 23:59:00 nt Joel Ortiz infection in Clinic nose [id number] 03/05/2016 03/05/2016 DIS Outpatie [place], [facility] New FM MED RCK 987 09:00:00 23:59:00 nt Joel [facility] [id number] 06/05/2015 06/05/2015 DIS Outpatie Greenfield, [facility] New FM infection in 844 11:03:00 23:59:00 nt Joel Cruz [facility] [id number] 05/16/2015 05/16/2015 CLS Outpatie [place], [facility] New 6 month 405 08:51:00 23:59:59 nt Dirk Ortiz Uro recheck T Clinic [id number] 03/14/2015 03/14/2015 DIS Outpatie [place], [facility] New FM sore nose 475 11:20:00 23:59:00 nt Joel [facility] [id number] 02/20/2015 02/20/2015 DIS Outpatie [place], [facility] New FM sore red nose 692 09:58:00 23:59:00 nt Christine E [facility] [id number] 01/31/2015 01/31/2015 DIS Outpatie [place], [facility] New FM MED CHECK 665 09:00:00 23:59:00 nt Joel [facility] [id number] 02/18/2017 Document [id number] 05:16:11 Registra tion [id number] 01/14/2017 Document [id number] 05:24:10 Registra tion [id number] 09/13/2016 Document [id number] 05:16:45 Registra tion [id number] 05/08/2016 Document [id number] 05:16:44 Registra tion [id number] 03/06/2016 Document [id number] 05:16:36 Registra tion [id number] 06/06/2015 Document [id number] 05:16:43 Registra tion [id number] 05/31/2015 Document [id number] 14:14:01 Registra tion [id number] 05/31/2015 Document [id number] 14:04:55 Registra tion [id number] 05/31/2015 Document [id number] 13:27:11 Registra tion [id number] 05/31/2015 Document [id number] 13:12:20 Registra tion [id number] 05/31/2015 Document [id number] 12:43:36 Registra tion [id number] 05/31/2015 Document [id number] 12:21:13 Registra tion [id number] 05/31/2015 Document [id number] 11:47:21 Registra tion [id number] 05/31/2015 Document [id number] 10:31:38 Registra tion [id number] 05/31/2015 Document [id number] 10:21:09 Registra tion [id number] 05/31/2015 Document [id number] 09:58:00 Registra tion [id number] 02/10/2017 02/10/2017 DIS OutpatiAMB. ClauCCCN SKINCOMPLA 752 13:45:00 14:56:00 nt [place] [id number] 12/22/2017 Document [id number] 15:33:00 Registra tion
--- OUTSIDE RECORDS SUMMARY | 2017-12-22 15:44 | External Medical Summary | Referral Summary ---
:1940 Author [facility] Address [address] [place] [address] [address] Care Team Providers Name Role Phone Joel Greenfield Primary Care Physician Encounter VC Date(s): 05/09/15 - 05/09/15 [facility] [address] [phone] [place] Discharge Disposition: 01-Home or Self Care Attending Physician: Joel Greenfield MD Admitting Physician: Joel Greenfield MD Vital Signs Most recent to oldest [Reference Range]: 1 Blood Pressure [90-140/60-90 mmHg] 126/74 mmHg (05/09/15 9:15 AM) Problem List Condition Effective Dates Status [...] capsule 0 Refill(s) Start Date: 05/13/14 Status: Orderedterazosin 5 mg oral capsule See Instructions, TAKE ONE CAPSULE BY MOUTH EVERY DAY, # 90 caps, 3 Refill(s), TAKE ONE CAPSULE BY MOUTH EVERY DAY Start Date: 01/31/15 Status: Ordered Results Chemistry Most recent to oldest [Reference Range]: 1 Sodium Lvl [135-144 mEq/L] 136 mEq/L (05/09/15 9:53 AM) Potassium Lvl [3.5-5.2 mEq/L] 4.5 mEq/L (05/09/15 9:53 AM) Chloride [99-111 mEq/L] 102 mEq/L (05/09/15 9:53 AM) CO2 [23-31 mEq/L] 26 mEq/L (05/09/15 9:53 AM) AGAP [3-20] 8 (05/09/15 9:53 AM) BUN [8-26 mg/dL] 14 mg/dL (05/09/15 9:53 AM) Glucose Lvl [70-99 mg/dL] 98 mg/dL (05/09/15 9:53 AM) Creatinine Lvl [0.72-1.25 mg/dL] 0.96 mg/dL (05/09/15 9:53 AM) eGFR [>60 mL/min] >60 mL/min 1 (05/09/15 9:53 AM) Calcium Lvl [8.9-10.5 mg/dL] 8.8 mg/dL *LOW* (05/09/15 9:53 AM) Albumin Lvl [3.4-4.8 gm/dL] 4.1 gm/dL (05/09/15 9:53 AM) Total Protein [6.2-8.1 gm/dL] 6.6 gm/dL (05/09/15 9:53 AM) Globulin [1.8-4.0 gm/dL] 2.5 gm/dL (05/09/15 9:53 AM) ALT [0-55 U/L] 19 U/L (05/09/15 9:53 AM) AST [5-34 U/L] 20 U/L (05/09/15 9:53 AM) Alk Phos [40-150 U/L] 71 U/L (05/09/15 9:53 AM) Bili Total [0.2-1.2 mg/dL] 0.6 mg/dL (05/09/15 9:53 AM) Hgb A1c [4.1-5.6 %] 5.6 % (05/09/15 9:53 AM) eAvg Glucose 114.0 mg/dL (05/09/15 9:53 AM) 1Result Comment: Multiply eGFR results by 1.21 for race. Immunizations Vaccine Date Refusal Reason influenza virus [...] Patient Education Author: Joel Greenfield MD Date: Obstetrics and Gynecology Hyperglycemia Hyperglycemia occurs when the glucose (sugar) in your blood is too high. Hyperglycemia can happen for many reasons, but it most often happens to people who do not know they have diabetes or are not managing their diabetes properly. CAUSES Whether you have diabetes or not, there are other causes of hyperglycemia. Hyperglycemia can occur when you have diabetes, but it can also occur in other situations that you might not be as aware of, such as: Diabetes If you have diabetes and are having problems controlling your blood glucose, hyperglycemia could occur because of some of the following reasons: Not following your meal plan. Not taking your diabetes medications or not taking it properly. Exercising less or doing less activity than you normally do. Being sick. Pre-diabetes This cannot be ignored. Before people develop Type 2 diabetes, they almost always have "pre-diabetes." This is when your blood glucose levels are higher than normal, but not yet high enough to be d iagnosed as diabetes. Research has shown that some long-term damage to the body , especially the heart and circulatory system, may already be occurring during pre-diabetes. If you take action to manage y our blood glucose when you have pre-diabetes, you may delay or prevent Type 2 diabetes from developing. Stress If you have diabetes, you may be "diet" controlled or on oral medications or insulin to control your diabetes. However, you may find that your blood glucose is higher than usual in the hospital whe ther you have diabetes or not. This is often referred to as "stress hyperglycemia." Stress can elevate your blood glucose. This happens because of hormones put out by the body during times of stress. If stress has been the cause of your high blood glucose, it can be followed regularly by your caregiver. That way he/she can make sure your hyperglycemia does not continue to get worse or progress to diabetes. Steroids Steroids are medications that act on the infection fighting system ( immune system) to block inflammation or infection. One side effect can be a rise in blood glucose. Most people can produce enough extra insulin to allow for this rise, but for those who cannot, steroids make blood glucose levels go even higher. It is not unusual for steroid treatments to "uncover" diabetes that is developing. It is not always possible to determine if the hyperglycemia will go away after the steroids are stopped. A special blood test called an A1c is sometimes done to determine if your blood glucose was elevated before the steroids were started. SYMPTOMS Thirsty. Frequent urination. Dry mouth. Blurred vision. Tired or fatigue. Weakness. Sleepy. Tingling in feet or leg. DIAGNOSIS Diagnosis is made by monitoring blood glucose in one or all of the following ways: A1c test. This is a chemical found in your blood. Fingerstick blood glucose monitoring. Laboratory results. TREATMENT First, knowing the cause of the hyperglycemia is important before the hyperglycemia can be treated. Treatment may include, but is not be limited to: Education. Change or adjustment in medications. Change or adjustment in meal plan. Treatment for an illness, infection, etc. More frequent blood glucose monitoring. Change in exercise plan. Decreasing or stopping steroids. Lifestyle changes. HOME CARE INSTRUCTIONS Test your blood glucose as directed. Exercise regularly. Your caregiver will give you instructions about exercise. Pre-diabetes or diabetes which comes on with stress is helped by exercising. Eat wholesome, balanced meals. Eat often and at regular, fixed times. Your caregiver or punchboard filling machine operator will give you a meal plan to guide your sugar intake. Being at an ideal weight is important. If needed, losing as little as 10 to 15 pounds may help improve blood glucose levels. SEEK MEDICAL CARE IF: You have questions about medicine, activity, or diet. You continue to have symptoms (problems such as increased thirst, urination, or weight gain). SEEK IMMEDIATE MEDICAL CARE IF: You are vomiting or have diarrhea. Your breath smells fruity. You are breathing faster or slower. You are very sleepy or incoherent. You have numbness, tingling, or pain in your feet or hands. You have chest pain. Your symptoms get worse even though you have been following your caregiver 's orders. If you have any other questions or concerns. Document Released: 01/21/2002 Document Revised: 10/19/2012 Document Reviewed: 11/23/2012 [facility] Patient Information 2015 [employer]. This information is not intended to replace advice given to you by your health care provider. Make sure you discuss any questions you have with your health care provider. Preventive Medicine Managing Your High Blood Pressure Blood pressure is a measurement of how forceful your blood is pressing against the abebe of the arteries. Arteries are muscular tubes within the circulatory system. Blood pressure does not stay the same . Blood pressure rises when you are active, excited, or nervous; and it lowers during sleep and relaxation. If the numbers measuring your blood pressure stay above normal most of the time, you are at ri sk for health problems. High blood pressure (hypertension) is a long-term ( chronic) condition in which blood pressure is elevated. A blood pressure reading is recorded as two numbers, such as 120 over 80 (or 120/80). The first, higher number is called the systolic pressure. It is a measure of the pressure in your arteries as the he art beats. The second, lower number is called the diastolic pressure. It is a measure of the pressure in your arteries as the heart relaxes between beats. Keeping your blood pressure in a normal range is important to your overall health and prevention of health problems, such as heart disease and stroke. When your blood pressure is uncontrolled, your hear t has to work harder than normal. High blood pressure is a very common condition in adults because blood pressure tends to rise with age. Men and women are equally likely to have hypertension but at dif ferent times in life. Before age 45, men are more likely to have hypertension. After 65 years of age, women are more likely to have it. Hypertension is especially common in Americans. This condi tion often has no signs or symptoms. The cause of the condition is usually not known. Your caregiver can help you come up with a plan to keep your blood pressure in a normal, healthy range. BLOOD PRESSURE STAGES Blood pressure is classified into four stages: normal, prehypertension, stage 1 , and stage 2. Your blood pressure reading will be used to determine what type of treatment, if any, is necessary. Appropri ate treatment options are tied to these four stages: Normal Systolic pressure (mm Hg): below 120. Diastolic pressure (mm Hg): below 80. Prehypertension Systolic pressure (mm Hg): 120 to 139. Diastolic pressure (mm Hg): 80 to 89. Stage1 Systolic pressure (mm Hg): 140 to 159. Diastolic pressure (mm Hg): 90 to 99. Stage2 Systolic pressure (mm Hg): 160 or above. Diastolic pressure (mm Hg): 100 or above. RISKS RELATED TO HIGH BLOOD PRESSURE Managing your blood pressure is an important responsibility. Uncontrolled high blood pressure can lead to: A heart attack. A stroke. A weakened blood vessel (aneurysm). Heart failure. Kidney damage. Eye damage. Metabolic syndrome. Memory and concentration problems. HOW TO MANAGE YOUR BLOOD PRESSURE Blood pressure can be managed effectively with lifestyle changes and medicines (if needed). Your caregiver will help you come up with a plan to bring your blood pressure within a normal range. Your plan should include the following: Education Read all information provided by your caregivers about how to control blood pressure. Educate yourself on the latest guidelines and treatment recommendations. New research is always being done to further define the risks and treatments for high blood pressure. Lifestylechanges Control your weight. Avoid smoking. Stay physically active. Reduce the amount of salt in your diet. Reduce stress. Control any chronic conditions, such as high cholesterol or diabetes. Reduce your alcohol intake. Medicines Several medicines (antihypertensive medicines) are available, if needed, to bring blood pressure within a normal range. Communication Review all the medicines you take with your caregiver because there may be side effects or interactions. Talk with your caregiver about your diet, exercise habits, and other lifestyle factors that may be contributing to high blood pressure. See your caregiver regularly. Your caregiver can help you create and adjust your plan for managing high blood pressure. RECOMMENDATIONS FOR TREATMENT AND FOLLOW-UP The following recommendations are based on current guidelines for managing high blood pressure in non adults. Use these recommendations to identify the proper follow-up period or treatment optio n based on your blood pressure reading. You can discuss these options with your caregiver. Systolic pressure of 120 to 139 or diastolic pressure of 80 to 89: Follow up with your caregiver as directed. Systolic pressure of 140 to 160 or diastolic pressure of 90 to 100: Follow up with your caregiver within 2 months. Systolic pressure above 160 or diastolic pressure above 100: Follow up with your caregiver within 1 month. Systolic pressure above 180 or diastolic pressure above 110: Consider antihypertensive therapy; follow up with your caregiver within 1 week. Systolic pressure above 200 or diastolic pressure above 120: Begin antihypertensive therapy; follow up with your caregiver within 1 week. Document Released: 04/21/2013 Document Reviewed: 04/21/2013 [facility] Patient Information 2015 [employer]. This information is not intended to replace advice given to you by your health care provider. Make sure you discuss any questions you have with your health care provider. No follow up information was provided. Extracted from: Title: Office Visit Note Author: Joel Greenfield MD Date: 05/09/15 Assessment/Plan Benign essential hypertension Continue with the current medications. Lab today which is nonfasting. Ordered: Comprehensive Metabolic Panel Office Visit Level 3 Est 02237 Benign prostatic hypertrophy (BPH) with incomplete bladder emptying Ordered: Office Visit Level 3 Est 36995 Elevated glucose Ordered: Hemoglobin A1c Office Visit Level 3 Est 93611
--- OUTSIDE RECORDS SUMMARY | 2017-12-22 15:44 | External Medical Summary | Referral Summary ---
:1940 Author Organization [facility] [address] Care Team Providers Name Role Phone Bari Saenz Primary Care Physician Encounter VC Date(s): 02/26/17 - 02/26/17 [facility] [phone] [place] Discharge Diagnosis: Benign prostatic hypertrophy (BPH) with incomplete bladder emptying Discharge Diagnosis: Elevated glucose Discharge Diagnosis: Chronic idiopathic constipation Discharge Diagnosis: Benign essential hypertension Discharge Disposition: 01-Home or Self Care Attending Physician: Bari Saenz MD Admitting Physician: Bari Saenz MD Vital Signs Most recent to oldest [Reference Range]: 1 Blood Pressure [90-140/60-90 mmHg] 160/80 mmHg *HI* (02/26/17 8:56 AM) Problem List Condition Effective Dates Status [...] DAY, # 90 tabs, 0 Refill(s), Pharmacy: [facility] #[id number], TAKE ONE TABLET BY MOUTH EVERY DAY Start Date: 02/17/17 Status: Orderedbenazepril 40 mg oral tablet See Instructions, TAKE ONE TABLET BY MOUTH DAILY, # 90 tabs, 0 Refill(s), Pharmacy: [facility]#[id number], TAKE ONE TABLET BY MOUTH DAILY Start Date: 02/17/17 Status: OrderedLinzess 145 mcg oral capsule 145 mcg 1 caps, Oral, Daily, # 30 caps, 5 Refill(s), Pharmacy: [facility] #[id number], 1 caps OralDaily Start Date: 01/21/17 Status: Orderedlutein Oral, Daily, 0 Refill(s) Start Date: 05/13/14 Status: OrderedMelatonin Oral, Bedtime (once a day), 0 Refill(s) Start Date: 05/13/14 Status: Orderedsaw palmetto oral capsule 0 Refill(s) Start Date: 05/13/14 Status: Orderedtamsulosin 0.4 mg oral capsule 0.4 mg 1 caps, Oral, Bedtime (once a day), # 90 caps, 1 Refill(s), Pharmacy: [facility] #[id number], 1 caps Oral Bedtime (once a day) Start Date: 02/26/17 Status: Orderedterazosin 5 mg oral capsule See Instructions, TAKE ONE CAPSULE BY MOUTH EVERY DAY, # 90 tabs, 0 Refill(s), Pharmacy: [facility] #[id number], TAKE ONE CAPSULE BY MOUTH EVERY DAY Start Date: 02/17/17 Status: Ordered Results No data available for this section Immunizations Given and Recorded Vaccine Date Status Refusal Reason influenza virus vaccine, inactivated 09/12/16 Given influenza virus vaccine, inactivated1 05/03/15 Recorded influenza virus vaccine, live 07/16/12 Given pneumococcal 13-valent conjugate vaccine 09/12/16 Given pneumococcal 23-polyvalent vaccine 06/03/03 Recorded 1Location History: [facility] Procedures Procedure Date Related Diagnosis Body Site S/P colonoscopy1 04/09/07 H/O circumcision 1with cecum biopsy showing chronic inflammation, focal hyperplastic changes; repeat 10 years Social History Social History Type Response Smoking Status Former smoker1 1Many years ago. Assessment and Plan Extracted from: Title: Ambulatory Patient Education Author: Bari Saenz MD Date: Home Health Care Constipation, Adult Constipation is when a person has fewer than three bowel movements a week, has difficulty having a bowel movement, or has stools that are dry, hard, or larger than normal. As people grow older, constipa tion is more common. A low-fiber diet, not taking in enough fluids, and taking certain medicines may make constipation worse. CAUSES Certain medicines, such as antidepressants, pain medicine, iron supplements , antacids, and water pills. Certain diseases, such as diabetes, irritable bowel syndrome (IBS), thyroid disease, or depression. Not drinking enough water. Not eating enough fiber-rich foods. Stress or travel. Lack of physical activity or exercise. Ignoring the urge to have a bowel movement. Using laxatives too much. SIGNS AND SYMPTOMS Having fewer than three bowel movements a week. Straining to have a bowel movement. Having stools that are hard, dry, or larger than normal. Feeling full or bloated. Pain in the lower abdomen. Not feeling relief after having a bowel movement. DIAGNOSIS Your health care provider will take a medical history and perform a physical exam. Further testing may be done for severe constipation. Some tests may include: A barium enema X-ray to examine your rectum, colon, and, sometimes, your small intestine. A sigmoidoscopy to examine your lower colon. A colonoscopy to examine your entire colon. TREATMENT Treatment will depend on the severity of your constipation and what is causing it. Some dietary treatments include drinking more fluids and eating more fiber- rich foods. Lifestyle treatments may include regular exercise. If these diet and lifestyle recommendations do not help, your health care provider may recommend taking zrqx-yle-uqwpjjg laxative medicines to help you have bowel movements. Prescript ion medicines may be prescribed if smkb-lls-xxhiiej medicines do not work. HOME CARE INSTRUCTIONS Eat foods that have a lot of fiber, such as fruits, vegetables, whole grains, and beans. Limit foods high in fat and processed sugars, such as mongolian fries, hamburgers, cookies, candies, and soda. A fiber supplement may be added to your diet if you cannot get enough fiber from foods. Drink enough fluids to keep your urine clear or pale yellow. Exercise regularly or as directed by your health care provider. Go to the restroom when you have the urge to go. Do not hold it. Only take atxu-ghp-ylvcffq or prescription medicines as directed by your health care provider. Do not take other medicines for constipation without talking to your health care provider first. SEEK IMMEDIATE MEDICAL CARE IF: You have bright red blood in your stool. Your constipation lasts for more than 4 days or gets worse. You have abdominal or rectal pain. You have thin, pencil-like stools. You have unexplained weight loss. MAKE SURE YOU: Understand these instructions. Will watch your condition. Will get help right away if you are not doing well or get worse. This information is not intended to replace advice given to you by your health care provider. Make sure you discuss any questions you have with your health care provider. Document Released: 04/25/2005 Document Revised: 08/18/2015 Document Reviewed: 05/09/2014 [employer] Patient Education 2016 [employer] No follow up information was provided. Extracted from: Title: Office Visit Note Author: Bari Saenz MD Date: 02/26/17 Assessment/Plan Benign essential hypertension This issue was reviewed, appears stable, and current therapy continued except as mentioned. Appropriate lab was reviewed from the most recent appropriate entry and lab was ordered if needed in the c jaiden/nursing orders, and follow up recommended generally in 90 days and no later then six months. The patient reports their blood pressure has been stable at home and is not having any significant or related problems. There has been no chest pain, chest pressure, soa/maddox. The patient had an elevated blood pressure reading and is to monitor their bp and call with a report if consistently > 140/90. BP good at home. Benign prostatic hypertrophy (BPH) with incomplete bladder emptying This issue was reviewed, appears stable, and current therapy continued except as mentioned. Appropriate lab was reviewed from the most recent appropriate entry and lab was ordered if needed in the c jaiden/nursing orders, and follow up recommended generally in 90 days and no later then six months. Happy with the flomax. Chronic idiopathic constipation This issue was reviewed, appears stable, and current therapy continued except as mentioned. Appropriate lab was reviewed from the most recent appropriate entry and lab was ordered if needed in the c jaiden/nursing orders, and follow up recommended generally in 90 days and no later then six months. Happy with the linzess. IMPRESSION: No acute abnormalities in the abdomen. There is a moderate amount of stool present in the colon. [1] Elevated glucose This issue was reviewed, appears stable, and current therapy continued except as mentioned. Appropriate lab was reviewed from the most recent appropriate entry and lab was ordered if needed in the c jaiden/nursing orders, and follow up recommended generally in 90 days and no later then six months. Lab pending.
--- OUTSIDE RECORDS SUMMARY | 2017-12-22 15:44 | External Medical Summary | Referral Summary ---
:1940 Author Organization [facility] [address] Care Team Providers Name Role Phone Joel Greenfield Primary Care Physician Encounter VC Date(s): 01/13/17 - 01/13/17 [facility] [address]- Discharge Diagnosis: Chronic idiopathic constipation Discharge Disposition: 01-Home or Self Care Attending Physician: Christal Blevins PA-C Admitting Physician: Christal Blevins PA-C Vital Signs Most recent to oldest [Reference Range]: 1 Temperature Tympanic [36.6-38.1 degC] 36.8 degC (01/13/17 9:09 AM) Peripheral Pulse Rate [60-100 bpm] 75 bpm (01/13/17 9:09 AM) Blood Pressure [90-140/60-90 mmHg] 130/70 mmHg (01/13/17 9:09 AM) SpO2 93 % (01/13/17 9:09 AM) Problem List Condition Effective Dates Status [...] TABLET BY MOUTH DAILY, # 90 tabs, eRx: [facility] #[id number] Start Date: 09/16/16 Status: Ordereddocusate sodium 100 mg oral capsule 200 mg 2 caps, Oral, Daily, as needed for constipation, # 20 caps, 0 Refill(s) Start Date: 01/13/17 Status: OrderedLinzess 145 mcg oral capsule 145 mcg 1 caps, Oral, Daily, # 30 caps, 0 Refill(s), samples given to patient ( Rx) Start Date: 01/13/17 Status: Orderedlutein Oral, Daily, 0 Refill(s) Start Date: 05/13/14 Status: OrderedMelatonin Oral, Bedtime (once a day), 0 Refill(s) Start Date: 05/13/14 Status: Orderedsaw palmetto oral capsule 0 Refill(s) Start Date: 05/13/14 Status: Orderedtamsulosin 0.4 mg oral capsule 0.4 mg 1 caps, Oral, Bedtime (once a day), # 90 caps, 3 Refill(s), Pharmacy: [facility] #[id number], 1 caps Oral Bedtime (once a day) [...] Plan Extracted from: Title: Office Visit Note- Chronic Author: Christal Blevins PA-C Date: 01/13 constipation Assessment/Plan Chronic idiopathic constipation We talked about his options. He does not want another colonoscopy. Will have him stop the OTC's, and try him on Linzess. Gave samples of the 145mcg caps to take daily on empty stomach. Talked about shahnaz franco SE's. He is to call and let us know how it works for him. May send script if working and covered. He is to continue with exercise and sipping on fluids. Try not to excess 2L per day. Will also get KUB today. Ordered: linaclotide, 145 mcg 1 caps, Oral, Daily, # 30 caps, 0 Refill(s), samples given to patient (Rx) Office Visit Level 3 Est 10053
--- OUTSIDE RECORDS SUMMARY | 2017-12-22 15:44 | External Medical Summary | Referral Summary ---
:1940 Author Organization [facility] Address [address] [place] [address] [address] Care Team Providers Name Role Phone Joel Greenfield Primary Care Physician Encounter VC Date(s): 05/16/15 - 05/16/15 [facility] [address] [place] [address] [address] [place] Discharge Diagnosis: BPH [...] day), 0 Refill(s) Start Date: 05/13/14 Status: Orderedmupirocin 2% topical ointment 1 migue, Topical, TID, X 15 days, # 30 g, 0 Refill(s) Start Date: 06/05/15 Stop Date: 06/20/15 Status: Orderedsaw palmetto oral capsule 0 Refill(s) Start Date: 05/13/14 Status: Orderedtamsulosin 0.4 mg oral capsule 0.4 mg 1 caps, Oral, Bedtime (once a day), # 90 caps, 3 Refill(s), Pharmacy: [facility] #[id number], 1 caps Oral Bedtime (once a day) [...] Follow Up With: Where: When: Joel Greenfield [address] [place] [address] Drive; [place] [address] Business (1) Within 3 to 5 days Comments: Follow Up With: Where: When: Dirk Carroll [address] [place] [address] Drive; [place] [address] Business (1) In 1 year [...] visit. Ordered: Office Visit Level 3 Est 66553 BPH without obstruction/lower urinary tract symptoms Orders: tamsulosin, 0.4 mg 1 caps, Oral, Bedtime (once a day), # 90 caps, 3 Refill(s), Pharmacy: [facility] #[id number], 1 caps Oral Bedtime (once a day) Prostate Specific Antigen
--- OUTSIDE RECORDS SUMMARY | 2017-12-22 15:44 | External Medical Summary | Referral Summary ---
:1940 Author [facility] Address [address] [place] [address] [address] Care Team Providers Name Role Phone Joel Greenfield Primary Care Physician Encounter VC Date(s): 06/05/15 - 06/05/15 [facility] [address] [address]- Discharge Diagnosis: Abscess and cellulitis Discharge Disposition: [...] MOUTH EVERY DAY Start Date: 01/31/15 Status: OrderedCipro 500 mg oral tablet 500 mg 1 tabs, Oral, BID, X 12 days, # 24 tabs, 0 Refill(s) Start Date: 06/05/15 Stop Date: 06/17/15 Status: OrderedLotensin 40 mg oral tablet See [...] day), # 90 caps, 3 Refill(s), Pharmacy: [facility] #[id number], 1 caps Oral Bedtime (once a day) [...] 07/25/2001 Document Revised: 10/19/2012 Document Reviewed: 11/02/2014 [facility] Patient Information 2015 [facility]. This information is not intended to replace [...] bid. Ordered: Office Visit Level 3 Est 26334 Orders: ciprofloxacin, 500 mg 1 tabs, Oral, BID, X 12 days, # 24 tabs, 0 Refill(s) mupirocin topical, 1 migue, Topical, TID, X 15 days, # 30 g, 0 Refill(s)
--- OUTSIDE RECORDS SUMMARY | 2017-12-22 15:44 | External Medical Summary | Referral Summary ---
:1940 Author Organization [facility] Address [address] [place] [address] [address] Care Team Providers Name Role Phone Joel Greenfield Primary Care Physician Encounter VC Date(s): 05/16/15 - 05/16/15 [facility] [address] [place] [address] [address] [place] Discharge Diagnosis: BPH [...] day), # 90 caps, 3 Refill(s), Pharmacy: [facility] #[id number], 1 caps Oral Bedtime (once a day) [...] Follow Up With: Where: When: Joel Greenfield [address] [place] [address] Drive; [place] [address] Business (1) Within 3 to 5 days Comments: Follow Up With: Where: When: Dirk Carroll [address] [place] [address] Drive; [place] [address] Business (1) In 1 year [...] visit. Ordered: Office Visit Level 3 Est 51616 BPH without obstruction/lower urinary tract symptoms Orders: tamsulosin, 0.4 mg 1 caps, Oral, Bedtime (once a day), # 90 caps, 3 Refill(s), Pharmacy: [facility] #[id number], 1 caps Oral Bedtime (once a day) Prostate Specific Antigen
--- OUTSIDE RECORDS SUMMARY | 2017-12-22 15:44 | External Medical Summary | Referral Summary ---
:1940 Author [facility] Address [address] [place] [address] [address] Care Team Providers Name Role Phone Joel Greenfield Primary Care Physician Encounter VC Date(s): 03/14/15 - 03/14/15 [facility] [address] [address] [place] Discharge Disposition: 01-Home or Self Care Attending Physician: Joel Greenfield MD Admitting Physician: Joel Greenfield MD Vital Signs Most recent to oldest [Reference Range]: 1 Blood Pressure [90-140/60-90 mmHg] 140/70 mmHg (03/14/15 11:40 AM) Problem List Condition Effective Dates Status [...] 0 Refill(s) Start Date: 05/13/14 Status: Orderedjasvir suaerz oral capsule 0 Refill(s) Start Date: 05/13/14 Status: Orderedtamsulosin 0.4 mg oral capsule 0.4 mg 1 caps, Oral, Bedtime (once a day), # 90 caps, 3 Refill(s), Pharmacy: [facility] #[id number], 1 caps Oral Bedtime (once a day) [...] Patient Education Author: Joel Greenfield MD Date: 03/16/15 Home Health Care Cellulitis Cellulitis is an infection of the skin and the tissue beneath it. The infected area is usually red and tender. Cellulitis occurs most often in the arms and lower legs. CAUSES Cellulitis is caused by bacteria that enter the skin through cracks or cuts in the skin. The most common types of bacteria that cause cellulitis are Staphylococcus and Streptococcus. SYMPTOMS Redness and warmth. Swelling. Tenderness or pain. Fever. DIAGNOSIS Your caregiver can usually determine what is wrong based on a physical exam. Blood tests may also be done. TREATMENT Treatment usually involves taking an antibiotic medicine. HOME CARE INSTRUCTIONS Take your antibiotics as directed. Finish them even if you start to feel better. Keep the infected arm or leg elevated to reduce swelling. Apply a warm cloth to the affected area up to 4 times per day to relieve pain. Only take [id number] or prescription medicines for pain, discomfort , or fever as directed by your caregiver. Keep all follow-up appointments as directed by your caregiver. SEEK MEDICAL CARE IF: You notice red streaks coming from the infected area. Your red area gets larger or turns dark in color. Your bone or joint underneath the infected area becomes painful after the skin has healed. Your infection returns in the same area or another area. You notice a swollen bump in the infected area. You develop new symptoms. SEEK IMMEDIATE MEDICAL CARE IF: You have a fever. You feel very sleepy. You develop vomiting or diarrhea. You have a general ill feeling (malaise) with muscle aches and pains. MAKE SURE YOU: Understand these instructions. Will watch your condition. Will get help right away if you are not doing well or get worse. Document Released: 05/07/2006 Document Revised: 01/26/2013 Document Reviewed: 10/12/2012 [facility] Patient Information 2015 [employer]. This information is not intended to replace advice given to you by your health care provider. Make sure you discuss any questions you have with your health care provider. No follow up information was provided. Extracted from: Title: Office Visit Note Author: Joel Greenfield MD Date: 03/14/15 Assessment/Plan Abscess and cellulitis Rx for Cipro 500mg bid for 10-14 days. Bactroban to the inside of the nose. Follow up as needed. Hot packs. Ordered: Office Visit Level 3 Est 31837
--- OUTSIDE RECORDS SUMMARY | 2017-12-22 15:44 | External Medical Summary | Referral Summary ---
:1940 Author Organization [facility] Address [address] [place] [address] [address] Care Team Providers Name Role Phone Joel Greenfield Primary Care Physician Encounter VC Date(s): 05/16/15 - 05/16/15 [facility] [address] [place] [address] [address] [place] Discharge Diagnosis: BPH [...] Refill(s), Pharmacy: [facility] #[id number], 1 caps Oral Bedtime (once a day) [...] Follow Up With: Where: When: Joel Greenfield [address] [place] [address] Drive; [address] [place], [place] [id number] Business (1) Within 3 to 5 days Comments: Follow Up With: Where: When: Dirk Sanchez[address]; [place] [address] Business (1) In 1 year [...] visit. Ordered: Office Visit Level 3 Est 90122 BPH without obstruction/lower urinary tract symptoms Orders: tamsulosin, 0.4 mg 1 caps, Oral, Bedtime (once a day), # 90 caps, 3 Refill(s), Pharmacy: [facility] #[id number], 1 caps Oral Bedtime (once a day) Prostate Specific Antigen
--- OUTSIDE RECORDS SUMMARY | 2017-12-22 15:44 | External Medical Summary | Referral Summary ---
:1940 Author Organization [facility] [address] Care Team Providers Name Role Phone Joel Greenfield Primary Care Physician Encounter VC Date(s): 09/12/16 - 09/12/16 [facility] [address] [place] Discharge Diagnosis: Benign essential hypertension Discharge Diagnosis: Encounter for immunization Discharge Diagnosis: Benign prostatic hypertrophy (BPH) with incomplete bladder emptying Discharge Disposition: 01-Home or Self Care Attending Physician: Christal Blevins PA-C Admitting Physician: Christal Blevins PA-C Vital Signs Most recent to oldest [Reference Range]: 1 Temperature Tympanic [36.6-38.1 degC] 35.8 degC *LOW* (09/12/16 9:20 AM) Peripheral Pulse Rate [60-100 bpm] 80 bpm (09/12/16 9:20 AM) Blood Pressure [90-140/60-90 mmHg] 142/78 mmHg *HI* (09/12/16 9:20 AM) Problem List Condition Effective Dates Status [...] 03/05/16 Status: Orderedbenazepril 40 mg oral tablet 40 mg 1 tabs, Oral, Daily, # 90 tabs, 1 Refill(s), Pharmacy: [facility] # [id number], 1 tabs Oral Daily Start Date: 09/12/16 Status: Orderedlutein Oral, Daily, 0 Refill(s) Start Date: 05/13/14 Status: OrderedMelatonin Oral, Bedtime (once a day), 0 Refill(s) Start Date: 05/13/14 Status: Orderedsaw palmetto oral capsule 0 Refill(s) Start Date: 05/13/14 Status: Orderedtamsulosin 0.4 mg oral capsule 0.4 mg 1 caps, Oral, Bedtime (once a day), # 90 caps, 3 Refill(s), Pharmacy: [facility] #[id number], 1 caps Oral Bedtime (once a day) [...] Med ck Author: Christal Blevins PA-C Date: Assessment/Plan Benign essential hypertension BP is mildly elevated today, but since he is a fairly healthy 75 year old, I would have a goal BP of <150/90. He does not want to change meds. He does not want labs done today, but agrees to do them in 6 months. Med ck appt at that time also. Ordered: benazepril, 40 mg 1 tabs, Oral, Daily, # 90 tabs, 1 Refill(s), Pharmacy: [facility] #[id number], 1 tabs Oral Daily Office Visit Level 3 Est 87676 Benign prostatic hypertrophy (BPH) with incomplete bladder emptying No urinary issues. Continue with medications at this time. Recheck in 6 months or sooner if any issues. Ordered: Office Visit Level 3 Est 34482 Encounter for immunization,Immunization due Influenza vaccination given today per pt request. D/w him that he needs to have this done in the fall, before flu season. Also updated on Prevnar 13 today. ( also needs both of these vaccinations, and advised her to see the nurse for these). Ordered: Office Visit Level 3 Est 98892
--- OUTSIDE RECORDS SUMMARY | 2017-12-22 15:44 | External Medical Summary | Referral Summary ---
:1940 Author Organization [facility] Address [address] [place] [address] [address] Care Team Providers Name Role Phone Joel Greenfield Primary Care Physician Encounter VC Date(s): 03/05/16 - 03/05/16 [facility] [address] [address] [place] Discharge Disposition: 01-Home or Self Care Attending Physician: Joel Greenfield MD Admitting Physician: Joel Greenfield MD Vital Signs Most recent to oldest [Reference Range]: 1 Blood Pressure [90-140/60-90 mmHg] 144/76 mmHg *HI* (03/05/16 9:13 AM) Problem List Condition Effective Dates [...] for more refills Start Date: 03/05/16 Status: Orderedlutein Oral, Daily, 0 Refill(s) Start Date: 05/13/14 Status: OrderedMelatonin Oral, Bedtime (once a day), 0 Refill(s) Start Date: 05/13/14 Status: Orderedsaw palmetto oral capsule 0 Refill(s) Start Date: 05/13/14 Status: Orderedtamsulosin 0.4 mg oral capsule 0.4 mg 1 caps, Oral, Bedtime (once a day), # 90 caps, 3 Refill(s), Pharmacy: [facility] #[id number], 1 caps Oral Bedtime (once a day) Start Date: 05/16/15 Status: Orderedterazosin 5 mg oral capsule See Instructions, TAKE ONE CAPSULE BY MOUTH EVERY DAY, # 90 tabs, 3 Refill(s), TAKE ONE CAPSULE BY MOUTH EVERY DAY Start Date: 03/05/16 Status: Ordered Results Chemistry Most recent to oldest [Reference Range]: 1 Sodium Lvl [135-144 mEq/L] 138 mEq/L (03/05/16 10:00 AM) Potassium Lvl [3.5-5.2 mEq/L] 4.5 mEq/L (03/05/16 10:00 AM) Chloride [99-111 mEq/L] 105 mEq/L (03/05/16 10:00 AM) CO2 [23-31 mEq/L] 27 mEq/L (03/05/16 10:00 AM) AGAP [3-20] 6 (03/05/16 10:00 AM) BUN [8-26 mg/dL] 16 mg/dL (03/05/16 10:00 AM) Glucose Lvl [70-99 mg/dL] 98 mg/dL (03/05/16 10:00 AM) Creatinine Lvl [0.72-1.25 mg/dL] 1.03 mg/dL (03/05/16 10:00 AM) eGFR [>60 mL/min] >60 mL/min 1 (03/05/16 10:00 AM) Calcium Lvl [8.9-10.5 mg/dL] 8.9 mg/dL (03/05/16 10:00 AM) Albumin Lvl [3.4-4.8 gm/dL] 4.2 gm/dL (03/05/16 10:00 AM) Total Protein [6.0-7.6 gm/dL] 6.7 gm/dL 2 (03/05/16 10:00 AM) Globulin [1.8-4.0 gm/dL] 2.5 gm/dL (03/05/16 10:00 AM) ALT [0-55 U/L] 13 U/L (03/05/16 10:00 AM) AST [5-34 U/L] 17 U/L (03/05/16 10:00 AM) Alk Phos [40-150 U/L] 73 U/L (03/05/16 10:00 AM) Bili Total [0.2-1.2 mg/dL] 0.5 mg/dL (03/05/16 10:00 AM) PSA (wihout Reflex Free) [0.0-6.5 ng/mL] 0.7 ng/mL 3 (03/05/16 10:00 AM) Hgb A1c [4.1-5.6 %] 5.7 % *HI* (03/05/16 10:00 AM) eAvg Glucose 116.9 mg/dL (03/05/16 10:00 AM) 1Result Comment: Multiply eGFR results by 1.21 for race.2Result Comment: Please note new reference range for adult Protein.3Result Comment: AUA PSA Best Practice Guidelines: Age-Adjusted PSA Values by Ethnic Group Age Range Asians - Caucasians Americans 40-49 0-2.0 0-2.0 0-2.5 50-59 0-3.0 0-4.0 0-3.5 60-69 0-4.0 0-4.5 0-4.5 70-79 0-5.0 0-5.5 0-6.5 Immunizations Vaccine Date Refusal Reason influenza virus [...] Author: Joel Greenfield MD Date: Family Medicine Prostate-Specific Antigen Test WHY AM I HAVING THIS TEST? The prostate-specific antigen (PSA) test is performed to determine how much PSA you have in your blood. PSA is a type of protein that is normally present in the prostate gland. Certain conditions can cause PSA blood levels to increase , such as: Infection in the prostate (prostatitis). Enlargement of the prostate (hypertrophy). Prostate cancer. Because PSA levels increase greatly from prostate cancer, this test can be used to confirm a diagnosis of prostate cancer. It may also be used to monitor treatment for prostate cancer and to watch for a return of prostate cancer after treatment has finished. This test has a very high false-positive rate. Therefore, routine PSA screening for all men is no longer recommended. A false-positive result is incorrect because it indicates a condition or finding is present when it is not. WHAT KIND OF SAMPLE IS TAKEN? A blood sample is required for this test. It is usually collected by inserting a needle into a vein or by sticking a finger with a small needle. HOW DO I PREPARE FOR THE TEST? There is no preparation required for this test. However, there are factors that can affect the results of a PSA test. To get the most accurate results: Avoid having a rectal exam within several hours before having your blood drawn for this test. Avoid having any procedures performed on the prostate gland within 6 weeks of having this test. Avoid ejaculating within 24 hours of having this test. Tell your health care provider if you had a recent urinary tract infection (UTI). Tell your health care provider if you are taking medicines to assist with hair growth, such as finasteride. Tell your health care provider if you have been exposed to a medicine called diethylstillbesterol. Let your health care provider know if any of these factors apply to you. You may be asked to reschedule the test. WHAT ARE THE REFERENCE RANGES? Reference ranges are established after testing a large group of people. Reference ranges may vary among different people, labs, and hospitals. It is your responsibility to obtain your test results. Ask the lab or department performing the test when and how you will get your results. Low: 02.5 ng/mL. Slightly to moderately elevated: 2.610.0 ng/mL. Moderately elevated: 10.019.9 ng/mL. Significantly elevated: 20 ng/mL or greater. WHAT DO THE RESULTS MEAN? PSA test results greater than 4 ng/mL are found in the majority of men with prostate cancer. If your test result is above this level, this can indicate an increased risk for prostate cancer. Increased P SA levels can also indicate other health conditions. Talk with your health care provider to discuss your results, treatment options , and if necessary, the need for more tests. Talk with your health care provider if you have any questions about your results. This information is not intended to replace advice given to you by your health care provider. Make sure you discuss any questions you have with your health care provider. Document Released: 08/30/2005 Document Revised: 08/18/2015 Document Reviewed: 12/21/2014 [facility] Patient Information 2016 [employer]. Preventive Medicine Heart Disease Prevention Heart disease is a leading cause of . There are many things you can do to help prevent heart disease. BE PHYSICALLY ACTIVE Physical activity is good for your heart. It helps control your blood pressure , cholesterol levels, and weight. Try to be physically active every day. Ask your health care provider what activities are best for you. BE A HEALTHY WEIGHT Extra weight can strain your heart and affect your blood pressure and cholesterol levels. Lose weight with diet and exercise if recommended by your health care provider. EAT HEART-HEALTHY FOODS Follow a healthy eating plan as recommended by your health care provider or dietitian. Heart-healthy foods include: High-fiber foods. These include oat bran, oatmeal, and whole-grain breads and cereals. Fruits and vegetables. Avoid: Alcohol. Fried foods. Foods high in saturated fat. These include meats, butter, whole dairy products, shortening, and coconut or palm oil. Salty foods. These include canned food, luncheon meat, salty snacks, and fast food. KEEP YOUR CHOLESTEROL LEVELS UNDER CONTROL Cholesterol is a substance that is used for many important functions. When your cholesterol levels are high, cholesterol can stick to the insides of your blood vessels, making them narrow or clog. This can lead to chest pain (angina) and a heart attack. Keep your cholesterol levels under control as recommended by your health care provider. Have your cholesterol checked at least once a year. Target cholesterol levels (in mg/dL) for most people are: Total cholesterol below 200. LDL cholesterol below 100. HDL cholesterol above 40 in men and above 50 in women. Triglycerides below 150. KEEP YOUR BLOOD PRESSURE UNDER CONTROL Having high blood pressure (hypertension) puts you at risk for stroke and other forms of heart disease. Keep your blood pressure under control as recommended by your health care provider. Ask your [facility] care provider if you need treatment to lower your blood pressure. If you are 1839 years of age, have your blood pressure checked every 35 years. If you are 40 years of age or older, have your blood pressure checked every year. DO NOT USE TOBACCO PRODUCTS Tobacco smoke can damage your heart and blood vessels. Do not use any tobacco products including cigarettes, chewing tobacco, or electronic cigarettes. If you need help quitting, ask your health care provider. TAKE MEDICINES DIRECTED Take medicines only as directed by your health care provider. Ask your health care provider whether you should take an aspirin every day. Taking aspirin can help reduce your risk of heart disease and stroke. FOR MORE INFORMATION To find out more about heart disease, visit the [place] [employer]'s website at www.americanheart.org This information is not intended to replace advice given to you by your health care provider. Make sure you discuss any questions you have with your health care provider. Document Released: 03/11/2005 Document Revised: 08/18/2015 Document Reviewed: 09/21/2014 [employer] Patient Information 2016 [employer]. Managing Your High Blood Pressure Blood pressure [...] Several medicines (antihypertensive medicines) are available, if needed , to bring blood pressure within a normal [...] up with your caregiver within 1 week. This information is not intended to replace advice given to you by your health care provider. Make sure you discuss any questions you have with your health care provider. Document Released: 04/21/2013 Document Reviewed: 04/21/2013 [facility] Patient Information 2016 [employer]. No follow up information was provided. Extracted from: Title: Office Visit Note Author: Joel Greenfield MD Date: 03/05/16 Assessment/Plan Benign essential hypertension Continue with the current medications and will get lab today. Ordered: Office Visit Level 4 Est 05080 Benign prostatic hypertrophy (BPH) with incomplete bladder emptying Ordered: Office Visit Level 4 Est 91277 Elevated glucose Ordered: Office Visit Level 4 Est 57173 Encounter for prostate cancer screening Lab. Ordered: Office Visit Level 4 Est 63932 Orders: atenolol, See Instructions, TAKE ONE TABLET BY MOUTH EVERY DAY, # 90 tabs, 3 Refill(s), TAKE ONE TABLET BY MOUTH EVERY DAY benazepril, See Instructions, TAKE ONE TABLET BY MOUTH DAILY Pt needs appointment for more refills, # 90 tabs, 3 Refill(s), TAKE ONE TABLET BY MOUTH DAILY; Pt needs appointment for more refills terazosin, See Instructions, TAKE ONE CAPSULE BY MOUTH EVERY DAY, # 90 tabs, 3 Refill(s), TAKE ONE CAPSULE BY MOUTH EVERY DAY
--- OUTSIDE RECORDS SUMMARY | 2017-12-22 15:44 | External Medical Summary | Referral Summary ---
:1940 Author [facility] Address [address] [place] [address] [address] Care Team Providers Name Role Phone Joel Greenfield Primary Care Physician Encounter VC Date(s): 05/09/15 - 05/09/15 [facility] [address] [address] [place] Discharge Disposition: [...] 0 Refill(s) Start Date: 05/13/14 Status: Orderedjasvir gosso oral capsule 0 Refill(s) Start Date: 05/13/14 Status: Orderedtamsulosin 0.4 mg oral capsule 0.4 mg 1 caps, Oral, Bedtime (once a day), # 90 caps, 3 Refill(s), Pharmacy: [facility] #[id number], 1 caps Oral Bedtime (once a day) [...] at regular, fixed times. Your caregiver or payroll accounting specialist will give you a meal plan to [...] 01/21/2002 Document Revised: 10/19/2012 Document Reviewed: 11/23/2012 [facility] Patient Information 2015 [employer]. This information is not intended to replace [...] week. Document Released: 04/21/2013 Document Reviewed: 04/21/2013 [facility] Patient Information 2015 [employer]. This information is not intended to replace [...] Metabolic Panel Office Visit Level 3 Est 14223 Benign prostatic hypertrophy (BPH) with incomplete bladder emptying Ordered: Office Visit Level 3 Est 16655 Elevated glucose Ordered: Hemoglobin A1c Office Visit Level 3 Est 04210
--- OUTSIDE RECORDS SUMMARY | 2017-12-22 15:44 | External Medical Summary | Referral Summary ---
:1940 Author Organization [facility] Address [address] [place] [address] [address] Care Team Providers Name Role Phone Joel Greenfield Primary Care Physician Encounter VC Date(s): 05/16/15 - 05/16/15 [facility] [address] [place] [address] [phone] [place] Discharge Diagnosis: BPH [...] day), # 90 caps, 3 Refill(s), Pharmacy: [facility] #[id number], 1 caps Oral Bedtime (once a day) [...] Follow Up With: Where: When: Joel Greenfield [address] [place] [address] Drive; [place] [address] Business (1) Within 3 to 5 days Comments: Follow Up With: Where: When: [facility] [address]; [facility] [address] [address] Business (1) In 1 year 05/16/2016 Comments: [...] visit. Ordered: Office Visit Level 3 Est 51112 BPH without obstruction/lower urinary tract symptoms Orders: tamsulosin, 0.4 mg 1 caps, Oral, Bedtime (once a day), # 90 caps, 3 Refill(s), Pharmacy: [facility] #[id number], 1 caps Oral Bedtime (once a day) Prostate Specific Antigen
[2017-12-22] MEDS: NS 1,000 ML IV SCH ×3 (16:28→18:09)
--- NOTE | 2017-12-22 16:37 | XRay Report ---
EXAM: XR chest 1V LOCATION OF DICTATION: RIDDLE HISTORY: syncope COMPARISON: No prior studies available for comparison. FINDINGS: The heart size is normal. The mediastinal configuration is within normal limits. Irregular somewhat curvilinear density within the left mid upper lung zone. The consideration is scarring versus infiltrates. Pulmonary neoplasm is considered less likely. Recommend follow-up chest x-rays following therapy versus CT chest to further evaluate. There are no pleural effusions. There is no pneumothorax. Nasoenteric catheter extends into the stomach with the side-port positioned at the gastroesophageal junction. This could be advanced approximately 2 to 3 cm. Irregular somewhat curvilinear density in the left mid to upper lung zone. IMPRESSION: Curvilinear density within the left mid to upper lung zone may reflect area of scarring/infiltrates. Recommend follow-up chest x-rays to confirm resolution volume therapy versus CT chest to further evaluate. .
--- NOTE | 2017-12-22 16:54 | Emergency Department Report ---
General Adult HPI - General Chief complaint: Medical Emergency Stated complaint: dizzy, coughing, blood; near syncope Time Seen by Provider: 12/22/17 15:37 - History of Present Illness HPI narrative: 77-year-old gentleman presents with near syncopal episode. Patient was at home stood up out of his recliner and walked across the living room. He became very lightheaded and fell to the floor at which time he also vomited a small amount of blood, approximated it 50-75 cc. EMS was contacted and brought him to the emergency department for evaluation. He received approximately 300 cc of normal saline in transport. He has not had any previous history of gastric ulcer or GI bleed. He does not drink alcohol, does not chew tobacco. - Related Data Home Medications Medication Instructions Recorded Confirmed Aspirin 81 mg PO DAILY 12/22/17 12/22/17 Atenolol [Tenormin] 50 mg PO HS 12/22/17 12/22/17 Benazepril HCl [Lotensin] 40 mg PO HS 12/22/17 12/22/17 Linaclotide [Linzess] 145 mcg PO DAILY 12/22/17 12/22/17 Lutein 6 mg PO BID 12/22/17 12/22/17 Melatonin 5 mg PO HS 12/22/17 12/22/17 Tamsulosin [Flomax] 0.4 mg PO HS 12/22/17 12/22/17 Terazosin [Hytrin] 5 mg PO HS 12/22/17 12/22/17 Allergies Allergy/AdvReac Type Severity Reaction Status Date / Time Penicillins Allergy Intermediate Swelling Verified 12/22/17 15:45 Review of Systems All systems: reviewed and negative except as stated PFSH Patient Stated Medical History Hypertension Yes Hx Benign Prostatic Yes Hyperplasia Surgical History: *tonsillectomy. *wisdom teeth - Social History Smoking status: Former smoker Substance use type: does not use Alcohol intake frequency: holidays/special occasions only Physical Exam - Limitations Limitations: no limitations - General General appearance: alert, in no apparent distress - Normal Exams: Head:: Normocephalic without trauma Chest/Respirations:: Clear all bruno, with good airflow, and symmetry bilaterally Cardiovascular:: Regular rate and rhythm, without murmur or gallop, Pulses 2+ all extremities, capillary refill, <2 seconds all extremities Abdomen:: Bowel sounds positive, non-distended, no hepatosplenomegaly, masses or bruits noted Neurological:: Patient is alert, and oriented, cranial nerves, motor/sensory/ cerebellar, exams w/o gross deficits, to observation Psychiatric:: Patient exhibits, appropriate attention, emotion and affect - Abdominal Exam Abdominal exam: Present: soft, tenderness (very mild midepigastric), diminished bowel sounds. Absent: distention, guarding, rebound, rigidity Course Vital Signs Temperature 98.0 F 12/22/17 15:30 Pulse Rate 80 12/22/17 15:30 Respiratory Rate 21 12/22/17 15:30 Blood Pressure 134/64 12/22/17 15:30 Pulse Oximetry 95 12/22/17 15:30 Temperature 98.0 F 12/22/17 15:37 Pulse Rate 82 12/22/17 17:05 Respiratory Rate 34 H 12/22/17 17:05 Blood Pressure 109/56 12/22/17 17:01 Pulse Oximetry 94 12/22/17 17:05 Medical Decision Making - [facility] Narrative Medical decision making narrative: Peripheral IV placed with 1 L normal saline bolus. Initial blood pressure 140 systolic with pulse in the mid 80s. CBC, CMP, PT, PTT, gastric guaiac ordered. NG tube placed with obvious heme positive reflux. Total of 300 cc evacuated. White count and BUN slightly elevated with hemoglobin 12.4. General surgery consulted and agreed to perform endoscopy in the morning. Hospitalist service agreed to admit patient and will manage him overnight. - Medical Records Medical records reviewed: Yes: I reviewed the patient's medical records. - Lab Data Lab results reviewed: Yes: I reviewed the patient's lab results. Result diagrams: 12/22/17 16:20 12/22/17 16:20 Lab Results 12/22/17 12/22/17 12/22/17 Range/Units 16:20 16:20 16:20 WBC 14.7 H (4.5-11.0) T/MM3 RBC 3.82 L (4.50-5.90) M/MM3 Hgb 12.4 L (13.5-17.5) GM/DL Hct 38.0 L (41-53) % MCV 99.5 (80-100) UM3 MCH 32.5 (26-34) UUG MCHC 32.6 (31-37) GM/DL RDW Std Deviation 45.3 (36.9-50.2) FL Plt Count 273 (130-400) T/MM3 MPV 10.0 (9.4-12.4) UM3 Neutrophils % (Manual) 48.0 (33-66) % Lymphocytes % (Manual) 42.0 (23-45) % Monocytes % (Manual) 5.0 (0-9.0) % Eosinophils % (Manual) 5.0 H (0-4) % Neutrophils # (Manual) 7.1 (1.8-7.7) T/MM3 Lymphocytes # (Manual) 6.2 H (1-4.8) T/MM3 Monocytes # (Manual) 0.7 (0-0.8) T/MM3 Eosinophils # (Manual) 0.7 H (0-0.5) T/MM3 RBC Morph Comment Normal INR 1.06 (0.92-1.18) APTT 24.2 (24-36) SEC Turbidity < 20 (0-20) Sodium 141 (134-144) MEQ/L Potassium 4.4 (3.6-5) MEQ/L Chloride 109 H (98-107) MEQ/L Carbon Dioxide 22 (22-30) MEQ/L Anion Gap 10 (5-15) meq/L BUN 43.0 H (9-20) MG/DL Creatinine 0.9 (0.8-1.5) mg/dL GFR Calculation 81 BUN/Creatinine Ratio 48 H (6-26) RATIO Glucose 119 H (75-110) MG/DL Calculated Osmolality 283 H (261-280) MOSM/KG Calcium 8.5 (8.4-10.2) MG/DL Total Bilirubin 0.50 (0.20-1.30) MG/DL Icterus Index < 2 (0-7) AST 20 (17-59) U/L ALT 13 (1-50) U/L Alkaline Phosphatase 53 (38-126) U/L Troponin I < 0.012 (0-0.12) ng/ml Total Protein 6.0 L (6.3-8.2) g/dL Albumin 3.5 (3.5-5.0) g/dL Globulin 2.5 (2.4-3.6) G/DL Albumin/Globulin Ratio 1.4 (1.1-2.2) RATIO Specimen Hemolysis < 15 (0-25) - Radiology Data Radiology results reviewed: Yes: I reviewed the patient's radiology results. Disposition Disposition: Discharged Home, Self-Care Condition: Stable Prescriptions: No Action Terazosin [Hytrin] 5 mg PO HS Melatonin 5 mg PO HS Lutein 6 mg PO BID Linaclotide [Linzess] 145 mcg PO DAILY Aspirin 81 mg PO DAILY Tamsulosin [Flomax] 0.4 mg PO HS Atenolol [Tenormin] 50 mg PO HS Benazepril HCl [Lotensin] 40 mg PO HS Referrals: Bari Saenz MD [Primary Care Provider] - Time of Disposition: 17:59 - Seen By: physician
--- NOTE | 2017-12-22 17:43 | History & Physical Report ---
History of Present Illness Date: 12/22/17 Chief complaint: Vomiting blood HPI: Mr Long is a pleasant 77-year-old male who is noted to be dizzy and feel lightheaded earlier today. He then had what is described as a probable syncopal episode in which he fell and vomited a large amount of bright red blood. His called EMS. Patient was brought to the emergency room for acute evaluation. Upper studies were obtained. WBC is found to be 14.7, hemoglobin 12.4, hematocrit 38. Chemistry panel overall unremarkable, troponin was negative. INR 1.06. She was noted to be orthostatic 129/62 sitting down to 109/ 56 standing. An NG tube was placed with total of 300ml bright red blood return. Chest xray did revel a density in left mid lung , likely representing scarring. Given the acute GI bleeding. The hospitalist services were contacted and accepted. Patient for admission to the ICU under the care of Dr. Kumari. Consultation is placed to Dr. Sweeney for further surgical evaluation. Felton is seen while still in the emergency room, accompanied with family at his side. He reports that he has felt well until today at which time he felt more fatigued accompanied with dizziness and presyncope. This was followed by a large volume of bloody emesis. He does see Dr. Saenz for primary care. He reports that he is overall healthy. Currently is treated for some hypertension and enlarged prostate. Patient reports he does take a baby aspirin daily. Otherwise, she is on no chronic anticoagulation. We did discuss advance directives. He does wish to be a full code. Review of Systems All systems PM: 10-point ROS was reviewed, no additional remarkable complaints except - Constitutional Constitutional: Present: fatigue - Gastrointestinal Gastrointestinal: Present: as per HPI, hematemesis, nausea Past Medical History Medical History Updates: Hypertension. Enlarged prostate Surgical History: Tonsillectomy. Colonoscopy. [place] teeth Family History: Father-CVA. Mother-COPD Family History: As Above - Social History Smoking status: Former smoker (quit smoking in 1990) Substance use type: does not use Alcohol intake frequency: does not drink Housing: house Household members: spouse Current occupational status: retired Social history: Primary care provider-Dr. Saenz Patient resides independently at home with . He is active and walks approximately 2 miles a day. Medications Home Medications Medication Instructions Recorded Confirmed Type Aspirin 81 mg PO DAILY 12/22/17 12/22/17 History Atenolol [Tenormin] 50 mg PO HS 12/22/17 12/22/17 History Benazepril HCl [Lotensin] 40 mg PO HS 12/22/17 12/22/17 History Linaclotide [Linzess] 145 mcg PO DAILY 12/22/17 12/22/17 History Lutein 6 mg PO BID 12/22/17 12/22/17 History Melatonin 5 mg PO HS 12/22/17 12/22/17 History Tamsulosin [Flomax] 0.4 mg PO HS 12/22/17 12/22/17 History Terazosin [Hytrin] 5 mg PO HS 12/22/17 12/22/17 History Allergies Allergy/AdvReac Type Severity Reaction Status Date / Time Penicillins Allergy Intermediate Swelling Verified 12/22/17 15:45 Exam Vital Signs: Temperature 98.0 F 12/22/17 15:37 Pulse Rate 82 12/22/17 17:05 Respiratory Rate 34 H 12/22/17 17:05 Blood Pressure 109/56 12/22/17 17:01 Pulse Oximetry 94 12/22/17 17:05 Telemetry Rhythm: Sinus Rhythm, Sinus Tachycardia Height/Weight/BMI: Height 1.83 m Weight 85.7 kg - Constitutional Present: no acute distress, well nourished, well developed - Routine HEENT Exam Eye: Present: EOMI ENT: Present: mucous membranes moist, dentition normal - Routine Respiratory Exam Present: CTA bilaterally. Absent: wheezes - Routine Cardiovascular Exam Present: RRR, S1, S2, no murmur. Absent: murmur - Routine Abdominal Exam Present: soft, normoactive bowel sounds, non distended, non tender. Absent: tenderness - Routine Extremities Exam Present: no edema - Routine Back/Spine/Pelvis Exam Back/Spine: Present: full ROM - Routine Skin Exam Present: intact, dry, warm - Routine Neurological Exam Present: alert, oriented X3, CN II-XII intact, moving all extremities - Routine Psychiatric Exam Present: normal affect, normal thought process, cooperative Results - Labs CBC & Chem 7: 12/22/17 18:11 12/22/17 16:20 Assessment and Plan (1) Acute GI bleeding Current visit: Yes Status: Acute Assessment and Plan: Impression Acute GI bleed Acute anemia secondary to GI loss Orthostasis- POA Nausea Hypertension- Chronically Enlarged prostate Plan Will admit patient outpatient observation status to the ICU under the care of Dr. Kumari for acute GI bleeding Recheck hemoglobin at 1800, followed by serial hemoglobin every 6 hours Type and crossmatch 2 units of packed red blood cells Continue with NG tube to low intermittent suction to monitor output carefully. At this time- Patient will remain nothing by mouth Monitor patient on cardiac telemetry Give Protonix 80mg IV 1 and initiate Protonix drip for GI protection Consult this to Dr. Sweeney for further surgical evaluation and recommendations SCDs to bilateral LE to DVT prophylaxis At this time, will hold all home medications including aspirin and antihypertensives. Zofran and Reglan available as needed as patient does have some nausea Patient does wish to be a full code and this order is written Will discuss further orders and plan of care with attending, Dr. Kumari At time of discharge medical care will return to primary care provider, Dr Saenz 12/22/2017-6:55 PM-I examined the patient independently. I reviewed this chart, the patient history, and the STRIP ROLLER's/PA's documented findings as above. We discussed and formulated the assessment and plan as above with the additions below.-Dr. Kumari The patient was seen this evening in CCU accompanied by his and daughter-in -law. He complains of some discomfort from his NG tube in his nose and throat. He states he had some nausea earlier today and then this afternoon was getting up out of his recliner and fell because of lightheadedness. He did not lose consciousness. He then vomited a large amount of red blood. He was brought to the emergency room and lab showed hemoglobin of 12.4. Vital signs were stable but blood pressure did drop 20 points systolic from lying to standing. The patient was seen by Dr. Sweeney, surgeon in the ER. He recommended placement of an NG tube and he plans to reevaluate the patient tomorrow morning and likely perform EGD at that point. He asked the hospitalist service to admit. The patient was admitted to CCU for further evaluation and treatment of presumed upper GI bleed. He denied having any abdominal discomfort. He takes an 81 mg aspirin daily. He occasionally takes ibuprofen but not on a regular basis. He denies any abdominal pain. His last bowel movement was yesterday and he did not notice any unusual color to his stool. He denies any history of gastritis, gastric ulcers or any previous GI bleeding. His weight has been stable. He has been eating and drinking well. He does have history of hypertension and takes oral hypertensives. He denies any chest pain or shortness of breath. He denies any lightheadedness currently. Current vitals- heart rate of 90 and blood pressure of 134/63. The patient is alert and oriented and in no acute distress. HEENT reveals pupils to be equal with sclera anicteric. He has an NG tube in place with dark gastric secretions. Oropharynx is moist. Neck is supple. Chest is clear to auscultation. Cardio vascular reveals a regular rate and rhythm. Abdomen is soft and nontender with positive bowel sounds. Extremities are free of edema. Repeat hemoglobin is 11.0 down from 12.4 after approximately 1 L of IV fluids. INR and PTT are normal. CMP is basically normal other than BUN of 43. Creatinine is normal at 0.9. Troponin is normal. Impression Upper GI bleed Near-syncope with orthostatic blood pressure History of hypertension Plan Monitor closely in CCU. Serial hemoglobins every 6 hours. Type and cross 2 units of blood and have on hold. DC oral medications including antihypertensives and aspirin. Give Protonix 80 mg IV and Protonix drip. Give normal saline at 150 ML's per hour. Have to IVs in place. Dr. Sweeney was consulted. Probable EGD tomorrow. DVT Prophylaxis: SCD's GI Prophylaxis: Protonix Resuscitation Status: Full Code - Time spent with patient Time with patient PN: 50 minutes - Physician Narrative Narrative: Date: 12/22/17 Time: 1735 Hospital Course Summary Disclaimer: The visit summary below is not to be considered part of the above Progress Note. Hospital Course: Impression Acute GI bleed Acute anemia secondary to GI loss Orthostasis- POA Nausea Hypertension- Chronically Enlarged prostate Plan Will admit patient outpatient observation status to the ICU under the care of Dr. Kumari for acute GI bleeding Recheck hemoglobin at 1800, followed by serial hemoglobin every 6 hours Type and crossmatch 2 units of packed red blood cells Continue with NG tube to low intermittent suction to monitor output carefully. At this time- Patient will remain nothing by mouth Monitor patient on cardiac telemetry Give Protonix 80mg IV 1 and initiate Protonix drip for GI protection Consult this to Dr. Sweeney for further surgical evaluation and recommendations SCDs to bilateral LE to DVT prophylaxis At this time, will hold all home medications including aspirin and antihypertensives. Zofran and Reglan available as needed as patient does have some nausea Patient does wish to be a full code and this order is written Will discuss further orders and plan of care with attending, Dr. Kumari At time of discharge medical care will return to primary care provider, Dr Saenz
[2017-12-22] MEDS ORDERED: METOCLOPRAMIDE 10mg/2ml INJECTION IVP PRN (17:52)
[2017-12-22] MEDS ORDERED: PANTOPRAZOLE 40 MG INJECTION IVP ONE (17:58)
[2017-12-22] MEDS ORDERED: NS FLUSH BAG 500ml IV PRN (17:58)
[2017-12-22 18:02] VITALS: BMI 25.4
[2017-12-22] MEDS: PANTOPRAZOLE IV 80 MG in NS 250ml 250 ML IV SCH (18:28)
[2017-12-22] MEDS: ONDANSETRON 4 MG/2 ML INJECTION IVP PRN (18:37)
--- NOTE | 2017-12-22 20:20 | Consultation ---
DATE OF CONSULTATION 12/22/2017 HISTORY OF PRESENT ILLNESS This patient is 77 years old. This patient has had no previous episode of hematemesis. He has had no previous peptic ulcer disease. The patient has had no recent abdominal pain. The patient was walking across the floor of his living room at his home when he became lightheaded and fell to the floor. He then vomited up some blood. This occurred on the afternoon of 12/22/2017. EMS was contacted and they did transport the patient from his home to [facility] Emergency Room for further evaluation. The patient did have a nasogastric tube inserted at the emergency room and he has had dark red blood aspirated from the stomach with the nasogastric tube. Vital signs have all been stable in the emergency room. The patient takes aspirin 81 mg one p.o. daily. He does not take any other type of anticoagulants. The patient does not take any type of a nonsteroidal anti-inflammatory medication. He has had no previous abdominal operations. He is not having any abdominal pain at the present time. The patient does not drink alcohol. PHYSICAL EXAMINATION VITAL SIGNS: Pulse is 95. Blood pressure is 129/82. Height is 1.83 meters. Weight is 85.7 kg. BMI is 25.6 kg/m2. ABDOMEN: The abdomen is soft and nontender. There are no abdominal masses. There are no old abdominal incision scars. LABORATORY DATA Hemoglobin is 12.4. Hematocrit is 38. White blood cell count is 14,700. INR is 1.06. PTT is 24.2. Platelet count is 273,000. Liver function tests were all normal. IMPRESSION Acute upper gastrointestinal tract bleeding. RECOMMENDATIONS 1. Admit patient to ICU. 2. Keep patient n.p.o. 3. Monitor hemoglobin and hematocrit closely. 4. Transfuse as necessary. 5. Start patient on some intravenous Protonix. 6. Monitor vital signs carefully. 7. Esophagogastroduodenoscopy with possible biopsies and possible control of upper gastrointestinal tract bleeding point with application of endoscopic hemoclip or coagulation tomorrow morning. PATIENT EDUCATION I did talk with the patient and his today about undergoing esophagogastroduodenoscopy with possible biopsies and possible control of upper gastrointestinal tract bleeding point with application of an endoscopic hemoclip or coagulation of the bleeding point. Expected benefits of this procedure were reviewed. Alternatives were reviewed. Potential risks and complications were also reviewed including anesthetic risk, aspiration, hypoxia and the risk of induced bleeding caused by the procedure. Questions were solicited from the patient and his . All of their questions were answered. They do wish to have us proceed with the operation. MARVEL
[2017-12-23] MEDS: ONDANSETRON 4 MG/2 ML INJECTION IVP PRN (00:39)
[2017-12-23] MEDS: NS 1,000 ML IV SCH ×3 (02:03→11:27)
[2017-12-23] MEDS ORDERED: SORE THROAT SPRAY 20ml PO PRN (02:07)
[2017-12-23] MEDS: PANTOPRAZOLE IV 80 MG in NS 250ml 250 ML IV SCH ×2 (03:35→15:28)
--- NOTE | 2017-12-23 08:54 | Anesthesia Preoperative Report ---
Anesthesia Preoperative Record - Date and Time Date: 12/23/17 Preoperative Diagnosis: upper gi bleed Proposed Procedure: EGD NPO Since Date: 12/23/17 NPO Since Time: 00:00 Allergies/Adverse Reactions: Allergies Allergy/AdvReac Type Severity Reaction Status Date / Time Penicillins Allergy Intermediate Swelling Verified 12/22/17 15:45 - Vital Signs Vital Signs: Temperature 97.2 F 12/23/17 04:52 Pulse Rate 84 12/23/17 06:00 Respiratory Rate 26 H 12/23/17 06:00 Blood Pressure 143/66 H 12/23/17 06:00 Pulse Oximetry 97 12/23/17 06:00 Height and Weight: Height 1.83 m Weight 85.2 kg Body Mass Index 25.4 - Medications Inpatient Medications: Current Medications Sodium Chloride (Normal Saline) 1,000 mls @ 150 mls/hr IV .Q6H40M [facility] Last Admin: 12/23/17 08:51 Dose: 150 mls/hr Pantoprazole Sodium 80 mg/ (Sodium Chloride) 250 mls @ 25 mls/hr IV .Q10H [facility] PRN Reason: 8 MG/HR Last Admin: 12/23/17 03:35 Dose: 8 mg/hr, 25 mls/hr Metoclopramide HCl (Reglan) 10 mg IVP Q6H PRN Ondansetron HCl (Zofran) 4 mg IVP Q6H PRN PRN Reason: Nausea &/or vomiting Last Admin: 12/23/17 00:39 Dose: 4 mg Sodium Chloride (Iv Flush) 10 - 80 ml IVF PRN PRN PRN Reason: Flushing Sodium Chloride (Normal Saline) 500 ml IV PRN PRN Throat Lozenges (Chloraseptic [place]) 3 spray PO Q2H PRN Last Admin: 12/23/17 03:02 Dose: 3 spray Home Medications: Home Medications Medication Instructions Recorded Confirmed Type Aspirin 81 mg PO DAILY 12/22/17 12/22/17 History Atenolol [Tenormin] 50 mg PO HS 12/22/17 12/22/17 History Benazepril HCl [Lotensin] 40 mg PO HS 12/22/17 12/22/17 History Linaclotide [Linzess] 145 mcg PO DAILY 12/22/17 12/22/17 History Lutein 6 mg PO BID 12/22/17 12/22/17 History Melatonin 5 mg PO HS 12/22/17 12/22/17 History Tamsulosin [Flomax] 0.4 mg PO HS 12/22/17 12/22/17 History Terazosin [Hytrin] 5 mg PO HS 12/22/17 12/22/17 History Is Patient on Beta Josh?: Yes Beta Josh Last Dose Date/Time: Atenolol - Medical History Cardiovascular: Reports: Hypertension Gastrointestional: Reports: Gastrointestinal Bleeding - Surgical History HEENT Surgeries: Reports: Tonsillectomy GI Surgery/Treatments: Reports: Colonoscopy Anesthesia Reactions: None Hx Family Anesthesia Reaction: No History of Motion Sickness: No - Social History Smoking Status: Former smoker (quit smoking in 1990) Hx Chewing Tobacco Use: No Second Hand Exposure: No Substance Use Type: does not use Alcohol Intake Frequency: does not drink - Pertinent Findings Laboratory: CBC and BMP 12/23/17 05:46 12/23/17 05:46 BMP 12/23/17 05:46 Sodium 142 Potassium 4.3 Chloride 111 H Carbon Dioxide 25 BUN 42.0 H Creatinine 0.8 Glucose 102 Calcium 7.9 L EKG: Sinus Rhythm - Physical Exam Respiratory Exam: Present: lungs clear Cardiovascular Exam: Present: regular rate and rhythm - Airway Assessment Mallampati Score: II TMD: 3 Fingerbreadths Neck Extension: fair Overall Assessment: may be difficult intubation - ASA ASA Score: 3 - Plan Anesthesia: General TIVA - Discussion Discussion: Discussed risks/options/alternatives of anesthesia and questions answered. Patient consents. Nursing pain assessment noted. Attestation Statement: Prior to the delivery of any anesthetic medication, I examined the patient, developed the plan, obtained the patient's consent and discussed the risk and benefits of the procedure with the patient/guardian.
--- NOTE | 2017-12-23 09:16 | Progress Note ---
- Date 12/23/17 Subjective: The patient was seen this morning in his room. His only complaint is of discomfort from his NG tube. He is sitting up in a chair. He denies any lightheadedness today. He denies any shortness of breath or chest discomfort. He has not had a bowel movement. He is urinating without difficulties. Hemoglobin has been stable overnight. Objective Vital signs: Temperature 97.2 F 12/23/17 04:52 Pulse Rate 84 12/23/17 06:00 Respiratory Rate 26 H 12/23/17 06:00 Blood Pressure 143/66 H 12/23/17 06:00 Pulse Oximetry 97 12/23/17 06:00 Height/Weight/BMI: Height 1.83 m Weight 85.2 kg Body Mass Index 25.4 Comments: Current heart rate 88, blood pressure 167/76 GEN-alert, oriented, no acute distress HEENT-sclera anicteric, NG tube is in place NECK-supple CV-regular rate and rhythm CHEST-clear to auscultation bilaterally ABD-soft, nontender with positive bowel sounds -no Dye EXT-no edema NEURO-no focal deficits SKIN-warm and dry Results - Labs CBC & Chem 7: 12/23/17 05:46 12/23/17 05:46 Assessment and Plan (1) Acute GI bleeding Current visit: Yes Status: Acute Assessment and Plan: Impression Acute GI bleed Acute anemia secondary to GI loss Orthostasis- POA-resolved Nausea Hypertension- Chronically Enlarged prostate Plan Overall, the patient appears to be doing well. Hemoglobin is stable since 6 PM last night. Continue on IV fluids. Await results of EGD. Continue IV Protonix. Continue Zofran and Reglan as needed for nausea. Likely restart antihypertensives when able to take by mouth. If needed, can give IV beta peng. Continue SCDs for DVT prophylaxis. Discussed with case management, likely change to inpatient status. DVT Prophylaxis: SCD's GI Prophylaxis: Protonix - Physician Narrative Narrative: Date: 12/23/17 Time: 907 Hospital Course Summary Disclaimer: The visit summary below is not to be considered part of the above Progress Note. Hospital Course: Impression Acute GI bleed Acute anemia secondary to GI loss Orthostasis- POA Nausea Hypertension- Chronically Enlarged prostate Plan Will admit patient outpatient observation status to the ICU under the care of Dr. Kumari for acute GI bleeding Recheck hemoglobin at 1800, followed by serial hemoglobin every 6 hours Type and crossmatch 2 units of packed red blood cells Continue with NG tube to low intermittent suction to monitor output carefully. At this time- Patient will remain nothing by mouth Monitor patient on cardiac telemetry Give Protonix 80mg IV 1 and initiate Protonix drip for GI protection Consult this to Dr. Sweeney for further surgical evaluation and recommendations SCDs to bilateral LE to DVT prophylaxis At this time, will hold all home medications including aspirin and antihypertensives. Zofran and Reglan available as needed as patient does have some nausea Patient does wish to be a full code and this order is written Will discuss further orders and plan of care with attending, Dr. Kumari At time of discharge medical care will return to primary care provider, Dr Saenz
[2017-12-23] MEDS ORDERED: PROPOFOL 500 MG/50 ML VIAL ONE (10:25)
[2017-12-23] MEDS ORDERED: LIDOCAINE VISCOUS 2% ORAL LIQUID 15ml ONE (10:32)
[2017-12-23] MEDS ORDERED: ALFENTANIL 1000mcg/2ml INJECTION IVP ONE (10:34)
[2017-12-23] MEDS ORDERED: LIDOCAINE VISCOUS 2% ORAL LIQUID 15ml PO ONE (10:57)
[2017-12-23] MEDS ORDERED: SIMETHICONE IR ONE (10:57)
[2017-12-23] MEDS ORDERED: SIMETHICONE ONE (10:59)
[2017-12-23] MEDS ORDERED: LIDOCAINE 2% (100mg/5ml) SYRINGE (PF) IVP ONE (11:17)
--- NOTE | 2017-12-23 11:37 | General Surgery Procedure Note ---
Date of Procedure: 12/23/17 Surgeon: Patel Postoperative Diagnosis: Gastric ulcer Procedure: EGD with biopsies Estimated Blood Loss: See Anesthesia Record.
--- NOTE | 2017-12-23 11:48 | Anesthesia Postoperative Note ---
- Date and Time Date: 12/23/17 Time: 11:47 - Status Patient Participated in Evaluation: Patient Participated in Person Vital Signs: Temperature 97.5 F 12/23/17 11:21 Pulse Rate 84 12/23/17 11:40 Respiratory Rate 14 12/23/17 11:40 Blood Pressure 125/60 12/23/17 11:40 Pulse Oximetry 100 12/23/17 11:40 Respiratory Function: Airway Patent, Regular Respirations Cardiovascular Function: Regular Pulse EKG: Sinus Rhythm Mental Status: Alert and Oriented Pain Intensity: 0 Hydration: IV Infusing Complications During Recover: None Apparent - Follow-Up Instructions Instructions: Per Surgeon
[2017-12-23] MEDS: SUCRALFATE 1gm/10ml ORAL LIQUID PO SCH ×3 (12:53→22:46)
[2017-12-23] MEDS: METOCLOPRAMIDE 10mg/2ml INJECTION IVP SCH ×3 (12:53→21:16)
--- NOTE | 2017-12-23 14:24 | Operative Note ---
DATE OF OPERATION 12/23/2017 PREOPERATIVE DIAGNOSIS Acute upper gastrointestinal tract bleeding. POSTOPERATIVE DIAGNOSES 1. Large gastric ulcer. 2. Acute upper gastrointestinal tract bleeding from large gastric ulcer. OPERATION Esophagogastroduodenoscopy with biopsies. SURGEON Abhi Sweeney MD ANESTHESIA TIVA ASA CLASS 3 FINDINGS Esophageal mucosa appeared normal. There was no distal esophagitis. There were no esophageal ulcers or erosions. The patient does have a large gastric ulcer. This is at the superior aspect of the stomach just beyond the gastroesophageal junction and adjacent to the gastroesophageal junction. There was some old black blood clot at the base of the ulcer. There was no active bleeding from the ulcer at the time of operation today. No bright red blood or old blood was present in the stomach at the time of the operation today. There were no other ulcers seen anywhere beyond the single gastric ulcer at the superior aspect of the stomach. There were no gastric erosions. Mucosa at the proximal half of the stomach and at the body of the stomach seemed to be somewhat thickened and prominent. Mucosa at the gastric antrum appeared completely normal. Duodenal mucosa appeared normal. DESCRIPTION OF OPERATION The patient was brought to the endoscopy room. The patient was placed on a cart in the endoscopy room. The patient was placed in left lateral recumbent position on the cart. The patient was premedicated with intravenous sedation medication administered by the nurse wet char conveyor tender. The Olympus upper GI endoscope was used. The upper GI endoscope was introduced into the esophagus. The upper GI endoscope was advanced down through the esophagus, stomach and into the duodenum. The upper GI endoscope was then withdrawn from the duodenum back into the stomach. The upper GI endoscope was retroflexed and the gastroesophageal junction was viewed from below. The upper GI endoscope was then straightened out. The endoscopic biopsy forceps was used to obtain a sample of prepyloric antral gastric mucosa which was submitted for JUANITO test studies. The upper GI endoscope was again retroflexed. The endoscopic biopsy forceps was used to obtain biopsies from mucosa around margins of the gastric ulcer adjacent to the gastroesophageal junction. These biopsy specimens were submitted for study by the pathologist. The endoscopic biopsy forceps was then used to obtain some additional biopsies of gastric mucosa at the level of the body of the stomach. This was an area where the gastric mucosal folds still seemed to be somewhat prominent and thickened. These biopsy specimens were submitted for study by the pathologist. The upper GI endoscope was then withdrawn out through the stomach and the esophagus and removed from the patient. Findings throughout the procedure were as described above. The patient did continue to receive intravenous sedation medication administered by the nurse wet char conveyor tender throughout the operation. The patient did tolerate the operation well. The patient was transferred from the endoscopy room to the recovery room in stable condition. [facility]
[2017-12-23] MEDS ORDERED: ATENOLOL 50 MG TABLET PO SCH (21:00)
[2017-12-23] MEDS: TAMSULOSIN 0.4 MG CAPSULE PO SCH (21:16)
[2017-12-23] MEDS: TERAZOSIN 5 MG CAPSULE PO SCH (21:20)
[2017-12-23] MEDS: MELATONIN 5 MG TABLET PO SCH (21:20)
[2017-12-24] MEDS: PANTOPRAZOLE IV 80 MG in NS 250ml 250 ML IV SCH ×2 (03:30→12:58)
[2017-12-24] MEDS: METOCLOPRAMIDE 10mg/2ml INJECTION IVP SCH ×5 (03:50→21:04)
[2017-12-24] MEDS: SUCRALFATE 1gm/10ml ORAL LIQUID PO SCH ×4 (07:38→20:52)
--- NOTE | 2017-12-24 11:25 | Progress Note ---
- Date 12/24/17 Subjective: The patient was seen in his room today accompanied by his . He states he is feeling okay. He denies any abdominal pain. He does have some occasional nausea. He has had no vomiting. He is tolerating clear liquids. He did have a drop in his blood pressure last night after restarting his antihypertensive. He had a slight drop in his hemoglobin from 11-9.6 this morning. On repeat hemoglobin is 9.6. He denies any chest discomfort, lightheadedness or shortness of breath. Objective Vital signs: Temperature 98.9 F 12/23/17 16:00 Pulse Rate 72 12/24/17 10:00 Respiratory Rate 25 H 12/24/17 10:00 Blood Pressure 105/59 12/24/17 10:00 Pulse Oximetry 99 12/24/17 10:00 Comments: Afebrile, blood pressure 105/59 currently, was as low as 77/41 last night. The patient remains on room air. GEN-alert, oriented, no acute distress HEENT-sclera anicteric, oropharynx is moist NECK-supple CV-regular rate and rhythm CHEST-clear to auscultation bilaterally ABD-soft, nontender with positive bowel sounds -no Dye EXT-no edema NEURO-no focal deficits SKIN-mildly pale, warm and dry Results - Labs CBC & Chem 7: 12/24/17 07:41 12/24/17 03:52 Labs: Laboratory Tests 12/22/17 12/23/17 12/23/17 16:20 05:46 05:46 Hgb 11.0 L BUN 43.0 H 42.0 H 12/23/17 12/23/17 12/24/17 12:43 17:56 03:52 Hgb 10.7 L 11.2 L 9.6 L D BUN 12/24/17 12/24/17 03:52 07:41 Hgb 9.6 L BUN 21.0 H D Microbiology Results: Microbiology 12/23/17 11:04 Gastric Biopsy Helicobacter pylori Rapid Urease - Final Assessment and Plan (1) Acute GI bleeding Current visit: Yes Status: Acute Assessment and Plan: Impression Upper GI bleed secondary to large gastric ulcer near the GE junction Official pathology is pending, preliminary pathology is concerning for possible lymphoma Acute anemia secondary to GI loss Orthostasis- POA-resolved Nausea Hypertension- the patient did develop hypotension after resuming his antihypertensive. Enlarged prostate Plan Overall, the patient appears to be doing well. Hemoglobin did drop to 9.6 but on repeat is unchanged. 2 units of blood remain on hold. Will transfer to the medical floor on telemetry. Vitals every 4 hours. Continue every 6 hours hemoglobin Discontinue atenolol due to hypotension. Change Protonix to 40 mg IV twice daily. Continue Carafate. Discussed preliminary pathology report with Dr. Sweeney. He recommends that the patient remain in the hospital until final report is back and then we can decide on further treatment at that time. He is okay with transfer to the medical floor on telemetry. Continue SCDs for DVT prophylaxis - Physician Narrative Narrative: Date: 12/24/17 Time: 1122 Hospital Course Summary Disclaimer: The visit summary below is not to be considered part of the above Progress Note. Hospital Course: Impression Acute GI bleed Acute anemia secondary to GI loss Orthostasis- POA Nausea Hypertension- Chronically Enlarged prostate Plan Will admit patient outpatient observation status to the ICU under the care of Dr. Kumari for acute GI bleeding Recheck hemoglobin at 1800, followed by serial hemoglobin every 6 hours Type and crossmatch 2 units of packed red blood cells Continue with NG tube to low intermittent suction to monitor output carefully. At this time- Patient will remain nothing by mouth Monitor patient on cardiac telemetry Give Protonix 80mg IV 1 and initiate Protonix drip for GI protection Consult this to Dr. Sweeney for further surgical evaluation and recommendations SCDs to bilateral LE to DVT prophylaxis At this time, will hold all home medications including aspirin and antihypertensives. Zofran and Reglan available as needed as patient does have some nausea Patient does wish to be a full code and this order is written Will discuss further orders and plan of care with attending, Dr. Kumari At time of discharge medical care will return to primary care provider, Dr Saenz
--- NOTE | 2017-12-24 16:52 | Progress Note ---
DATE 12/24/2017 HISTORY OF PRESENT ILLNESS The patient has been kept in the Intensive Care Unit overnight since his procedure yesterday. He has been doing well in the Intensive Care Unit this morning. The patient reports he has had no further vomiting since his esophagogastroduodenoscopy procedure. He is receiving antiemetics to try to prevent any further vomiting episodes. He does have some occasional nausea but has had no further vomiting. He has been tolerating a clear liquid diet. PHYSICAL EXAMINATION VITAL SIGNS: Pulse is 68. Blood pressure is 100/59. Oxygen saturation is 96% on room air. ABDOMEN: The abdomen is soft and nontender. LABORATORY DATA Hemoglobin was 9.6 and hematocrit was 30 at 0352 hours on 12/24/2017. Hemoglobin was 9.6 at 0741 hours on 12/24/2017. JUANITO test study result on a specimen obtained at esophagogastroduodenoscopy yesterday is JUANITO test negative. PATHOLOGY There is a preliminary pathology report that biopsies of margins of the gastric ulcer at the superior aspect of the stomach show an atypical lymphoid infiltrate. Biopsies of gastric mucosa at the body of the stomach also show an atypical lymphoid infiltrate. These biopsies are suspicious for possible malignant lymphoma. The case is being referred to Dr. Lombardi for further analysis and a final diagnosis. The pathology report at this point is just a preliminary pathology report. IMPRESSION 1. Large gastric ulcer at superior aspect of stomach adjacent to the gastroesophageal junction with biopsies of the ulcer suspicious for possible malignant lymphoma. 2. Recent acute upper gastrointestinal tract bleeding from large gastric ulcer. 3. Anemia due to acute gastrointestinal tract blood loss. RECOMMENDATIONS 1. I think it is acceptable to transfer the patient from the Intensive Care Unit out to a room on the Medical Unit or the Surgical Unit today. 2. Continue to monitor hemoglobin and hematocrit. 3. Transfuse as necessary. 4. Continue sequential compression devices for deep venous thrombosis prophylaxis. 5. Await final pathology report on biopsies of the gastric ulcer. I think the patient should remain in the hospital until this report is returned. 6. Continue intravenous Protonix and oral Carafate while we're waiting for the final pathology report on biopsies of the gastric ulcer and the gastric mucosa at the body of the stomach. [facility]
[2017-12-24] MEDS: MELATONIN 5 MG TABLET PO SCH (20:52)
[2017-12-24] MEDS: TERAZOSIN 5 MG CAPSULE PO SCH (20:53)
[2017-12-24] MEDS: TAMSULOSIN 0.4 MG CAPSULE PO SCH (20:53)
[2017-12-24] MEDS: PANTOPRAZOLE 40 MG INJECTION IVP SCH (21:02)
[2017-12-25] MEDS: METOCLOPRAMIDE 10mg/2ml INJECTION IVP SCH ×4 (05:45→21:18)
[2017-12-25] MEDS: SUCRALFATE 1gm/10ml ORAL LIQUID PO SCH ×4 (05:46→21:18)
[2017-12-25] MEDS: SALINE FLUSH 10ml SYRINGE IVF PRN ×4 (05:47→21:19)
[2017-12-25] MEDS: PANTOPRAZOLE 40 MG INJECTION IVP SCH ×2 (09:35→21:18)
--- NOTE | 2017-12-25 14:58 | Progress Note ---
- Date 12/25/17 Subjective: Felton is doing well today. He has no new complaints. He denies any abdominal pain or nausea. He is eager to have his diet advanced from clear liquid. He denies any shortness of breath. No cough or congestion. He denies fevers or chills. He denies feeling weak or dizzy, and has been going on walks regularly with his . Objective Vital signs: Temperature 96.3 F L 12/25/17 11:34 Pulse Rate 73 12/25/17 11:34 Respiratory Rate 16 12/25/17 11:34 Blood Pressure 133/69 12/25/17 11:34 Pulse Oximetry 95 12/25/17 11:34 Height/Weight/BMI: Weight 83 kg - Constitutional Present: no acute distress, well nourished, well developed - Routine HEENT Exam Head: Present: normocephalic Eye: Present: PERRL. Absent: conjunctival icterus, scleral injection ENT: Present: mucous membranes moist, oropharynx clear - Routine Respiratory Exam Present: CTA bilaterally - Routine Cardiovascular Exam Present: RRR, S1, S2 - Routine Abdominal Exam Present: soft, normoactive bowel sounds, non distended, non tender - Routine Extremities Exam Present: no edema, pulses intact, normal capillary refill. Absent: calf tenderness - Routine Back/Spine/Pelvis Exam Back/Spine: Present: full ROM - Routine Musculoskeletal Exam Musculoskeletal: Present: no joint swelling - Routine Skin Exam Present: intact, dry, warm - Routine Neurological Exam Present: alert, oriented X3, CN II-XII intact, moving all extremities, normal speech - Routine Psychiatric Exam Present: normal affect, normal thought process, cooperative Results - Labs CBC & Chem 7: 12/25/17 13:17 12/25/17 07:24 Microbiology Results: Microbiology 12/23/17 11:04 Gastric Biopsy Helicobacter pylori Rapid Urease - Final- negative Assessment and Plan (1) Acute GI bleeding Current visit: Yes Status: Acute Assessment and Plan: Impression Upper GI bleed secondary to large gastric ulcer near the GE junction Official pathology is pending, preliminary pathology is concerning for possible lymphoma Acute anemia secondary to GI loss Orthostasis- POA-resolved Nausea Hypertension- the patient did develop hypotension after resuming his antihypertensive. Enlarged prostate Plan Patient is without GI symptoms and his nausea is controlled on scheduled Reglan. Discussed with Dr. Sweeney, he is agreeable to advancing diet to full liquids today, and if well tolerated, advance to regular diet tomorrow. His hemoglobin is stabilizing, and on recheck had gone up to 10.4. He denies any symptoms of anemia. Continue Protonix and Carafate. He is hemodynamically stable today. Telemetry: Sinus rhythm. Electrolytes remain stable as well. 12/25/2017-4:45 PM-I examined the patient independently. I reviewed this chart, the patient history, and the MEAL COOK's/PA's documented findings as above. We discussed and formulated the assessment and plan as above with the additions below.-Dr. Kumari The patient was seen this afternoon in his room. He states he is feeling well. He denies any abdominal pain. He continues to have some occasional nausea and antiemetics resolve his symptoms. He has not had any vomiting. He has been up walking in the halls without any difficulties. He denies any chest pain, lightheadedness or shortness of breath. He has not had any bowel movements since he was admitted. He does have history of constipation and was taking Linzess as an outpatient. We discussed trying scheduled MiraLAX instead and he would like to try this since it is less expensive and Linzess can theoretically cause gastritis. On exam he is alert and in no acute distress. Chest is clear to auscultation. Cardiovascular reveals a regular rate and rhythm. Abdomen is soft and nontender. Extremities are free of edema. Continue every 6 hours hemoglobin. Advance diet. Await official pathology report. Start MiraLAX once daily. At discharge, the patient can take MiraLAX instead of Linzess because this medication may increase risk of gastroenteritis. If blood pressure remains elevated, consider restarting atenolol at a lower dose. DVT Prophylaxis: SCD's GI Prophylaxis: Protonix Resuscitation Status: Full Code - Physician Narrative Narrative: Date: 12/25/17 Time: 1455 Hospital Course Summary Disclaimer: The visit summary below is not to be considered part of the above Progress Note. Hospital Course: Impression Acute GI bleed Acute anemia secondary to GI loss Orthostasis- POA Nausea Hypertension- Chronically Enlarged prostate Plan Will admit patient outpatient observation status to the ICU under the care of Dr. Kumari for acute GI bleeding Recheck hemoglobin at 1800, followed by serial hemoglobin every 6 hours Type and crossmatch 2 units of packed red blood cells Continue with NG tube to low intermittent suction to monitor output carefully. At this time- Patient will remain nothing by mouth Monitor patient on cardiac telemetry Give Protonix 80mg IV 1 and initiate Protonix drip for GI protection Consult this to Dr. Sweeney for further surgical evaluation and recommendations SCDs to bilateral LE to DVT prophylaxis At this time, will hold all home medications including aspirin and antihypertensives. Zofran and Reglan available as needed as patient does have some nausea Patient does wish to be a full code and this order is written Will discuss further orders and plan of care with attending, Dr. Kumari At time of discharge medical care will return to primary care provider, Dr Saenz 12/23 Overall, the patient appears to be doing well. Hemoglobin is stable since 6 PM last night. Continue on IV fluids. Await results of EGD. Continue IV Protonix. Continue Zofran and Reglan as needed for nausea. Likely restart antihypertensives when able to take by mouth. If needed, can give IV beta peng. 12/24 Overall, the patient appears to be doing well. Hemoglobin did drop to 9.6 but on repeat is unchanged. 2 units of blood remain on hold. Will transfer to the medical floor on telemetry. Vitals every 4 hours. Continue every 6 hours hemoglobin Discontinue atenolol due to hypotension. Change Protonix to 40 mg IV twice daily. Continue Carafate. Discussed preliminary pathology report with Dr. Sweeney. He recommends that the patient remain in the hospital until final report is back and then we can decide on further treatment at that time. He is okay with transfer to the medical floor on telemetry. 12/25 Patient is without GI symptoms and his nausea is controlled on scheduled Reglan. Discussed with Dr. Sweeney, he is agreeable to advancing diet to full liquids today, and if well tolerated, advance to regular diet tomorrow. His hemoglobin is stabilizing, and on recheck had gone up to 10.4. He denies any symptoms of anemia. Continue Protonix and Carafate. He is hemodynamically stable. Telemetry: Sinus rhythm. Electrolytes remain stable as well.
[2017-12-25] MEDS: MELATONIN 5 MG TABLET PO SCH (21:18)
[2017-12-25] MEDS: TERAZOSIN 5 MG CAPSULE PO SCH (21:19)
[2017-12-25] MEDS: TAMSULOSIN 0.4 MG CAPSULE PO SCH (21:19)
[2017-12-26] MEDS: METOCLOPRAMIDE 10mg/2ml INJECTION IVP SCH ×3 (04:41→15:54)
[2017-12-26] MEDS: SUCRALFATE 1gm/10ml ORAL LIQUID PO SCH ×4 (06:02→22:59)
[2017-12-26] MEDS: PANTOPRAZOLE 40 MG INJECTION IVP SCH ×2 (09:15→23:00)
[2017-12-26] MEDS: POLYETHYL GLYCOL 3350 17gm PACKET PO SCH (09:16)
--- NOTE | 2017-12-26 09:24 | Progress Note ---
DATE 12/25/2017 HISTORY The patient is out in a room on the Medical Unit at this time. The patient is not having any abdominal pain. He is not having any nausea or vomiting. The patient has had no further hematemesis in the last 48 hours. PHYSICAL EXAMINATION VITAL SIGNS: Temperature is 97.6 degrees Fahrenheit oral. Pulse is 77. Respiratory rate is 16. Blood pressure is 166/79. Oxygen saturation is 97% on room air. ABDOMEN: The abdomen is soft and nontender at this time. LABORATORY DATA Hemoglobin is 10.4 at 1317 hours on 12/25/2017. IMPRESSION 1. Large gastric ulcer at superior aspect of stomach adjacent to the gastroesophageal junction with biopsies of the ulcer suspicious for possible malignant lymphoma. 2. Recent acute upper gastrointestinal tract bleeding from large gastric ulcer. 3. Anemia due to acute gastrointestinal tract blood loss. RECOMMENDATIONS 1. Continue to await final pathology report on biopsies of the gastric ulcer. 2. Advance diet to full liquid diet today. If the patient continues to have a stable hemoglobin and hematocrit and no further evidence of active gastrointestinal tract bleeding, the diet could be advanced to a regular diet tomorrow. 3. Continue to monitor hemoglobin and hematocrit. 4. Continue intravenous Protonix and oral Carafate while we are waiting for the final pathology report on biopsies of the gastric ulcer. 5. Continue sequential compression devices for deep venous thrombosis prophylaxis. [facility]
--- NOTE | 2017-12-26 13:22 | Progress Note ---
- Date 12/26/17 Subjective: F/U: Acute GI bleed, Anemia secondary to acute GI blood loss, Large gastric ulcer near the GE junction Doing well today. Tolerating clear liquids, Dr Sweeney advance to regular foods. Not having nausea or ab pain. Does note he 'fills up' more easily with oral intake, but not pain with intake. Passing flatus, no stools. Breathing well. Ambulating well in halls-not feeling lightheaded or dizzy when up. Objective Vital signs: Temperature 96.1 F L 12/26/17 11:20 Pulse Rate 90 12/26/17 11:20 Respiratory Rate 16 12/26/17 11:20 Blood Pressure 144/72 H 12/26/17 11:20 Pulse Oximetry 95 12/26/17 11:20 Height/Weight/BMI: Weight 82.5 kg - Constitutional Present: well nourished, well developed, average body habitus, cooperative - Routine HEENT Exam Head: Present: normocephalic, atraumatic Eye: Present: EOMI, PERRL - Routine Respiratory Exam Present: CTA bilaterally. Absent: rales, respiratory distress, rhonchi, stridor , wheezes, crackles - Routine Cardiovascular Exam Present: RRR, no murmur - Routine Abdominal Exam Present: soft, normoactive bowel sounds, non distended, non tender. Absent: guarding - Routine Extremities Exam Present: no edema, pulses intact. Absent: cyanosis, clubbing - Routine Musculoskeletal Exam Musculoskeletal: Present: no clubbing or cyanosis, normal strength - Routine Skin Exam Present: dry, warm - Routine Neurological Exam Present: alert, oriented X3, CN II-XII intact, moving all extremities, vision grossly intact, hearing grossly intact, normal speech. Absent: motor deficit, altered mental status - Routine Psychiatric Exam Present: normal affect, normal thought process, cooperative Results - Labs CBC & Chem 7: 12/26/17 04:15 12/26/17 04:15 Microbiology Results: Microbiology 12/23/17 11:04 Gastric Biopsy Helicobacter pylori Rapid Urease - Final Assessment and Plan (1) Acute GI bleeding Current visit: Yes Status: Acute Assessment and Plan: Impression Upper GI bleed secondary to gastric ulcer Large gastric ulcer near the GE junction Official pathology is pending, preliminary pathology is concerning for possible lymphoma Acute anemia secondary to GI loss Orthostasis (POA) - resolved Nausea - resolved Hypertension- the patient did develop hypotension after resuming his antihypertensive. Enlarged prostate Plan Hemoglobin stable at 9.7. No nausea or ab pain. Tolerating clear liquids, diet advanced to regular. Will restart atenolol at 25mg daily for BP control. Encourage continued ambulation. Final path pending - if cancer present, Dr Sweeney would recommend evaluation by Dr Gonzalez due to location and cancer. Possible discharge tomorrow if doing well. Case discussed with CM, Dr Sweeney, and family. Time spent with patient care 25 minutes. DVT Prophylaxis: SCD's GI Prophylaxis: Protonix Resuscitation Status: Full Code - Time spent with patient Time with patient PN: 25 minutes - Physician Narrative Physician: Yg Peralta MD Narrative: Date: 12/26/17 Time: 130 Hospital Course Summary Disclaimer: The visit summary below is not to be considered part of the above Progress Note. Hospital Course: 12/22/17 Will admit patient outpatient observation status to the ICU under the care of Dr. Kumari for acute GI bleeding Recheck hemoglobin at 1800, followed by serial hemoglobin every 6 hours Type and crossmatch 2 units of packed red blood cells Continue with NG tube to low intermittent suction to monitor output carefully. At this time- Patient will remain nothing by mouth Monitor patient on cardiac telemetry Give Protonix 80mg IV 1 and initiate Protonix drip for GI protection Consult this to Dr. Sweeney for further surgical evaluation and recommendations SCDs to bilateral LE to DVT prophylaxis At this time, will hold all home medications including aspirin and antihypertensives. Zofran and Reglan available as needed as patient does have some nausea Patient does wish to be a full code and this order is written Will discuss further orders and plan of care with attending, Dr. Kumari At time of discharge medical care will return to primary care provider, Dr Saenz 12/23/17 Overall, the patient appears to be doing well. Hemoglobin is stable since 6 PM last night. Continue on IV fluids. Await results of EGD. Continue IV Protonix. Continue Zofran and Reglan as needed for nausea. Likely restart antihypertensives when able to take by mouth. If needed, can give IV beta peng. 12/24/17 Overall, the patient appears to be doing well. Hemoglobin did drop to 9.6 but on repeat is unchanged. 2 units of blood remain on hold. Will transfer to the medical floor on telemetry. Vitals every 4 hours. Continue every 6 hours hemoglobin Discontinue atenolol due to hypotension. Change Protonix to 40 mg IV twice daily. Continue Carafate. Discussed preliminary pathology report with Dr. Sweeney. He recommends that the patient remain in the hospital until final report is back and then we can decide on further treatment at that time. He is okay with transfer to the medical floor on telemetry. 12/25/17 Patient is without GI symptoms and his nausea is controlled on scheduled Reglan. Discussed with Dr. Sweeney, he is agreeable to advancing diet to full liquids today, and if well tolerated, advance to regular diet tomorrow. Hemoglobin is stabilizing, and on recheck had gone up to 10.4. He denies any symptoms of anemia. Continue Protonix and Carafate. He is hemodynamically stable. At discharge, the patient can take MiraLAX instead of Linzess because this medication may increase risk of gastroenteritis. Telemetry: Sinus rhythm. 12/26/17 Hemoglobin stable at 9.7. No nausea or ab pain. Tolerating clear liquids, diet advanced to regular. Will restart atenolol at 25mg daily for BP control. Encourage continued ambulation. Final path pending - if cancer present, Dr Sweeney would recommend evaluation by Dr Gonzalez due to location and cancer. Possible discharge tomorrow if doing well.
[2017-12-26] MEDS: ATENOLOL 25 MG TABLET PO SCH (14:22)
[2017-12-26] MEDS: METOCLOPRAMIDE 5mg TABLET PO SCH ×2 (17:56→23:00)
[2017-12-26] MEDS: TERAZOSIN 5 MG CAPSULE PO SCH (23:00)
[2017-12-26] MEDS: TAMSULOSIN 0.4 MG CAPSULE PO SCH (23:00)
[2017-12-26] MEDS: MELATONIN 5 MG TABLET PO SCH (23:00)
[2017-12-26] MEDS: SALINE FLUSH 10ml SYRINGE IVF PRN (23:01)
[2017-12-27] MEDS: METOCLOPRAMIDE 5mg TABLET PO SCH ×2 (07:23→12:39)
[2017-12-27] MEDS: SUCRALFATE 1gm/10ml ORAL LIQUID PO SCH ×2 (07:23→12:39)
[2017-12-27 07:46] VITALS: BP 136/69; RESP 12; TEMP 97.1; O2SAT 95
[2017-12-27 09:23] VITALS: PULSE 103
[2017-12-27] MEDS: ATENOLOL 25 MG TABLET PO SCH (09:59)
[2017-12-27] MEDS: POLYETHYL GLYCOL 3350 17gm PACKET PO SCH (09:59)
[2017-12-27] MEDS: PANTOPRAZOLE 40 MG INJECTION IVP SCH (10:31)
--- NOTE | 2017-12-27 11:32 | Progress Note ---
- Date 12/27/17 Subjective: F/U: Acute GI bleed, Anemia secondary to acute GI blood loss, Large gastric ulcer near the GE junction Doing well today. Tolerating food-not having pain or nausea with eating. Ambulating well in halls. Breathing well. No chest pain. Not having f/c. Feels very well in general - up to going home. Objective Vital signs: Temperature 97.1 F 12/27/17 07:44 Pulse Rate 103 H 12/27/17 08:00 Respiratory Rate 12 12/27/17 07:44 Blood Pressure 136/69 12/27/17 07:44 Pulse Oximetry 95 12/27/17 07:44 Height/Weight/BMI: Weight 83.2 kg - Constitutional Present: no acute distress, well nourished, well developed, average body habitus , cooperative - Routine HEENT Exam Head: Present: normocephalic, atraumatic Eye: Present: EOMI, PERRL, normal accommodation ENT: Present: mucous membranes moist - Routine Respiratory Exam Present: CTA bilaterally. Absent: rales, respiratory distress, wheezes, crackles - Routine Cardiovascular Exam Present: RRR, no murmur - Routine Abdominal Exam Present: soft, normoactive bowel sounds, non distended, non tender. Absent: guarding - Routine Extremities Exam Present: no edema, pulses intact. Absent: cyanosis, clubbing - Routine Musculoskeletal Exam Musculoskeletal: Present: no clubbing or cyanosis, normal strength - Routine Skin Exam Present: intact, dry, warm - Routine Neurological Exam Present: alert, oriented X3, CN II-XII intact, moving all extremities, vision grossly intact, hearing grossly intact, normal speech. Absent: motor deficit, altered mental status - Routine Psychiatric Exam Present: normal affect, normal thought process, cooperative, good insight, good judgment Results - Labs CBC & Chem 7: 12/27/17 04:57 12/27/17 04:57 Microbiology Results: Microbiology 12/23/17 11:04 Gastric Biopsy Helicobacter pylori Rapid Urease - Final Assessment and Plan (1) Acute GI bleeding Current visit: Yes Status: Acute Assessment and Plan: Impression Upper GI bleed secondary to gastric ulcer Large gastric ulcer near the GE junction Official pathology is pending, preliminary pathology is concerning for possible lymphoma Acute anemia secondary to GI loss Orthostasis (POA) - resolved Nausea - resolved Hypertension Enlarged prostate Plan Will discharge to home - stable condition. Continue with PPI - Omeprazole 40mg BID for 1 month, then could decrease to 20mg Will continue with carafate 1gram ac meal and HS for at least 1 month. Final pathology pending - will follow up with Dr Sweeney in about 1 week to review path and discuss treatment. If cancer present, will need outpatient evaluation by Dr Gonzalez to discuss surgical options. F/U with Dr Saenz in 1 week for medical evaluation. Recommend CBC at that time due to anemia. See orders for details. Discussed medications for ulcer treatment with patient. Discussed follow up plans. Questions answered. Time spent with patient care and discharge greater than 30 minutes. DVT Prophylaxis: SCD's GI Prophylaxis: Protonix Resuscitation Status: Full Code - Physician Narrative Physician: Yg Peralta MD Narrative: Date: 12/27/17 Time: 1126 Hospital Course Summary Disclaimer: The visit summary below is not to be considered part of the above Progress Note. Hospital Course: 12/22/17 Will admit patient outpatient observation status to the ICU under the care of Dr. Kumari for acute GI bleeding Recheck hemoglobin at 1800, followed by serial hemoglobin every 6 hours Type and crossmatch 2 units of packed red blood cells Continue with NG tube to low intermittent suction to monitor output carefully. At this time- Patient will remain nothing by mouth Monitor patient on cardiac telemetry Give Protonix 80mg IV 1 and initiate Protonix drip for GI protection Consult this to Dr. Sweeney for further surgical evaluation and recommendations SCDs to bilateral LE to DVT prophylaxis At this time, will hold all home medications including aspirin and antihypertensives. Zofran and Reglan available as needed as patient does have some nausea Patient does wish to be a full code and this order is written Will discuss further orders and plan of care with attending, Dr. Kumari At time of discharge medical care will return to primary care provider, Dr Saenz 12/23/17 Overall, the patient appears to be doing well. Hemoglobin is stable since 6 PM last night. Continue on IV fluids. Await results of EGD. Continue IV Protonix. Continue Zofran and Reglan as needed for nausea. Likely restart antihypertensives when able to take by mouth. If needed, can give IV beta peng. 12/24/17 Overall, the patient appears to be doing well. Hemoglobin did drop to 9.6 but on repeat is unchanged. 2 units of blood remain on hold. Will transfer to the medical floor on telemetry. Vitals every 4 hours. Continue every 6 hours hemoglobin Discontinue atenolol due to hypotension. Change Protonix to 40 mg IV twice daily. Continue Carafate. Discussed preliminary pathology report with Dr. Sweeney. He recommends that the patient remain in the hospital until final report is back and then we can decide on further treatment at that time. He is okay with transfer to the medical floor on telemetry. 12/25/17 Patient is without GI symptoms and his nausea is controlled on scheduled Reglan. Discussed with Dr. Sweeney, he is agreeable to advancing diet to full liquids today, and if well tolerated, advance to regular diet tomorrow. Hemoglobin is stabilizing, and on recheck had gone up to 10.4. He denies any symptoms of anemia. Continue Protonix and Carafate. He is hemodynamically stable. At discharge, the patient can take MiraLAX instead of Linzess because this medication may increase risk of gastroenteritis. Telemetry: Sinus rhythm. 12/26/17 Hemoglobin stable at 9.7. No nausea or ab pain. Tolerating clear liquids, diet advanced to regular. Will restart atenolol at 25mg daily for BP control. Encourage continued ambulation. Final path pending - if cancer present, Dr Sweeney would recommend evaluation by Dr Gonzalez due to location and cancer. Possible discharge tomorrow if doing well. 12/27/17 Doing well. Tolerating regular foods. Hemoglobin stable at 9.5. No signs of active GI bleeding. Will discharge to home - stable condition. Continue with PPI - Omeprazole 40mg BID for 1 month, then could decrease to 20mg Will continue with carafate 1gram ac meal and HS for at least 1 month. Final pathology pending - will follow up with Dr Sweeney in about 1 week to review path and discuss treatment. If cancer present, will need outpatient evaluation by Dr Gonzalez to discuss surgical options. F/U with Dr Saenz in 1 week for medical evaluation. Recommend CBC at that time due to anemia. See orders for details.
[2017-12-27] MEDS ORDERED: PANTOPRAZOLE 40 MG TABLET PO SCH (17:00)
--- NOTE | 2017-12-27 17:11 | Progress Note ---
DATE 12/26/2017 HISTORY The patient is doing well overall. He is not having abdominal pain. The patient has been tolerating a full liquid diet. He is having no nausea or vomiting. He is passing flatus. He has not had a bowel movement today. He is up and ambulating in the halls without any dizziness or lightheadedness. PHYSICAL EXAMINATION VITAL SIGNS: Temperature is 96.9 degrees Fahrenheit oral. Pulse is 84. Respiratory rate is 16. Blood pressure is 176/70. Oxygen saturation is 94% on room air. ABDOMEN: The abdomen is soft and nontender. LABORATORY DATA Hemoglobin is 9.7 and hematocrit is 29.9 this morning. PATHOLOGY I did talk with Dr. Amberly Juarez today. I did later today talk with Dr. Lombardi. Dr. 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 There is still some immunostains pending yet. A final pathology report will not be available until next week. Biopsies of the gastric ulcer and biopsies at the middle of the body of the stomach show the same findings. Special stains for Helicobacter pylori organisms on the gastric biopsies were all negative. IMPRESSION 1. 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 2. Recent acute upper gastrointestinal tract bleeding from large gastric ulcer. 3. Anemia due to acute gastrointestinal tract blood loss. The hemoglobin and hematocrit have been stable over the last few days. RECOMMENDATIONS 1. Advance diet to regular diet today. 2. Continue to await final pathology report on biopsies of the gastric ulcer. 3. Continue to monitor hemoglobin and hematocrit. 4. Continue intravenous Protonix and oral Carafate while we are awaiting for the final pathology report on biopsies of the gastric ulcer. 5. Continue sequential compression devices for deep venous thrombosis prophylaxis. 6. The patient might be able to be dismissed from the hospital tomorrow while we are awaiting the final pathology report diagnosis. MTDD
--- NOTE | 2017-12-27 20:29 | Discharge Summary ---
Discharge Information Date of admission: 12/23/17 10:21 Anticipated date of discharge: 12/27/17 Attending Physician: Yg Peralta MD Primary care physician: Bari Saenz MD Consults: Dr Sweeney - surgery - Discharge Diagnosis (1) Acute GI bleeding Status: Acute Discharge diagnosis Upper GI bleed secondary to gastric ulcer Associated conditions and complications Large gastric ulcer near the GE junction Official pathology is pending, preliminary pathology is concerning for possible lymphoma Acute anemia secondary to GI loss Orthostasis (POA) - resolved Nausea - resolved Hypertension Enlarged prostate - Procedures Procedures: DATE OF OPERATION: 12/23/2017 PREOPERATIVE DIAGNOSIS: Acute upper gastrointestinal tract bleeding. POSTOPERATIVE DIAGNOSES 1. Large gastric ulcer. 2. Acute upper gastrointestinal tract bleeding from large gastric ulcer. OPERATION Esophagogastroduodenoscopy with biopsies. SURGEON Abhi Sweeney MD - Laboratory Labs: Admit Lab 12/22/17 16:20 WBC 14.7 H Hgb 12.4 L Hct 38.0 L MCV 99.5 Plt Count 273 Neutrophils % (Manual) 48.0 Lymphocytes % (Manual) 42.0 Monocytes % (Manual) 5.0 Eosinophils % (Manual) 5.0 H Admit Lab 12/22/17 16:20 Sodium 141 Potassium 4.4 Chloride 109 H Carbon Dioxide 22 Anion Gap 10 BUN 43.0 H Creatinine 0.9 GFR Calculation 81 BUN/Creatinine Ratio 48 H Glucose 119 H Calculated Osmolality 283 H Calcium 8.5 Total Bilirubin 0.50 AST 20 ALT 13 Alkaline Phosphatase 53 Troponin I < 0.012 Total Protein 6.0 L Albumin 3.5 Globulin 2.5 Albumin/Globulin Ratio 1.4 12/27/17 04:57 12/27/17 04:57 - Microbiology Microbiology 12/23/17 11:04 Gastric Biopsy Helicobacter pylori Rapid Urease - Final - NEGATIVE - Radiology Radiology: Date of Exam: 12/22/17 Type of Exam(s): XR chest 1V FINDINGS: The heart size is normal. The mediastinal configuration is within normal limits. Irregular somewhat curvilinear density within the left mid upper lung zone. The consideration is scarring versus infiltrates. Pulmonary neoplasm is considered less likely. Recommend follow-up chest x-rays following therapy versus CT chest to further evaluate. There are no pleural effusions. There is no pneumothorax. Nasoenteric catheter extends into the stomach with the side-port positioned at the gastroesophageal junction. This could be advanced approximately 2 to 3 cm. Irregular somewhat curvilinear density in the left mid to upper lung zone. IMPRESSION: Curvilinear density within the left mid to upper lung zone may reflect area of scarring/infiltrates. Recommend follow-up chest x-rays to confirm resolution volume therapy versus CT chest to further evaluate. - Pathology Gastric biopsy results pending at time of discharge. History of Present Illness HPI: Mr Long is a pleasant 77-year-old male who is noted to be dizzy and feel lightheaded earlier today. He then had what is described as a probable syncopal episode in which he fell and vomited a large amount of bright red blood. His called EMS. Patient was brought to the emergency room for acute evaluation. Upper studies were obtained. WBC is found to be 14.7, hemoglobin 12.4, hematocrit 38. Chemistry panel overall unremarkable, troponin was negative. INR 1.06. She was noted to be orthostatic 129/62 sitting down to 109/ 56 standing. An NG tube was placed with total of 300ml bright red blood return. Chest X-ray did revel a density in left mid lung, likely representing scarring. Given the acute GI bleeding. The hospitalist services were contacted and accepted. Patient for admission to the ICU under the care of Dr. Kumari. Consultation is placed to Dr. Sweeney for further surgical evaluation. Felton is seen while still in the emergency room, accompanied with family at his side. He reports that he has felt well until today at which time he felt more fatigued accompanied with dizziness and presyncope. This was followed by a large volume of bloody emesis. He does see Dr. Saenz for primary care. He reports that he is overall healthy. Currently is treated for some hypertension and enlarged prostate. Patient reports he does take a baby aspirin daily. Otherwise, she is on no chronic anticoagulation. We did discuss advance directives. He does wish to be a full code. For complete details of the H&P refer to that document. Objective Vital signs: Temperature 97.1 F 12/27/17 07:44 Pulse Rate 103 H 12/27/17 08:00 Respiratory Rate 12 12/27/17 07:44 Blood Pressure 136/69 12/27/17 07:44 Pulse Oximetry 95 12/27/17 07:44 Height/Weight/BMI: Weight 83.2 kg Hospital Course This is a general summary of the patient's hospital course. For more details refer to the complete medical record. Hospital course: 12/22/17 Will admit patient outpatient observation status to the ICU under the care of Dr. Kumari for acute GI bleeding Recheck hemoglobin at 1800, followed by serial hemoglobin every 6 hours Type and crossmatch 2 units of packed red blood cells Continue with NG tube to low intermittent suction to monitor output carefully. At this time- Patient will remain nothing by mouth Monitor patient on cardiac telemetry Give Protonix 80mg IV 1 and initiate Protonix drip for GI protection Consult this to Dr. Sweeney for further surgical evaluation and recommendations SCDs to bilateral LE to DVT prophylaxis At this time, will hold all home medications including aspirin and antihypertensives. Zofran and Reglan available as needed as patient does have some nausea Patient does wish to be a full code and this order is written Will discuss further orders and plan of care with attending, Dr. Kumari At time of discharge medical care will return to primary care provider, Dr Saenz 12/23/17 Overall, the patient appears to be doing well. Hemoglobin is stable since 6 PM last night. Continue on IV fluids. Await results of EGD. Continue IV Protonix. Continue Zofran and Reglan as needed for nausea. Likely restart antihypertensives when able to take by mouth. If needed, can give IV beta peng. 12/24/17 Overall, the patient appears to be doing well. Hemoglobin did drop to 9.6 but on repeat is unchanged. 2 units of blood remain on hold. Will transfer to the medical floor on telemetry. Vitals every 4 hours. Continue every 6 hours hemoglobin Discontinue atenolol due to hypotension. Change Protonix to 40 mg IV twice daily. Continue Carafate. Discussed preliminary pathology report with Dr. Sweeney. He recommends that the patient remain in the hospital until final report is back and then we can decide on further treatment at that time. He is okay with transfer to the medical floor on telemetry. 12/25/17 Patient is without GI symptoms and his nausea is controlled on scheduled Reglan. Discussed with Dr. Sweeney, he is agreeable to advancing diet to full liquids today, and if well tolerated, advance to regular diet tomorrow. Hemoglobin is stabilizing, and on recheck had gone up to 10.4. He denies any symptoms of anemia. Continue Protonix and Carafate. He is hemodynamically stable. At discharge, the patient can take MiraLAX instead of Linzess because this medication may increase risk of gastroenteritis. Telemetry: Sinus rhythm. 12/26/17 Hemoglobin stable at 9.7. No nausea or ab pain. Tolerating clear liquids, diet advanced to regular. Will restart atenolol at 25mg daily for BP control. Encourage continued ambulation. Final path pending - if cancer present, Dr Sweeney would recommend evaluation by Dr Gonzalez due to location and cancer. Possible discharge tomorrow if doing well. 12/27/17 Doing well. Tolerating regular foods. Hemoglobin stable at 9.5. No signs of active GI bleeding. Will discharge to home - stable condition. Hold ASA due to ulcer. Continue Atenolol for blood pressure control. Will have patient hold lisinopril - may restart as per Dr Saenz. May use Miralax in place of Linzess for bowel function. Reglan 5mg po AC/HS prn nausea. Continue with PPI - Omeprazole 40mg BID for 1 month, then could decrease to 20mg. Will continue with carafate 1gram ac meal and HS for at least 1 month. Final pathology pending - will follow up with Dr Sweeney in about 1 week to review path and discuss treatment. If cancer present, will need outpatient evaluation by Dr Gonzalez to discuss surgical options. F/U with Dr Saenz in 1 week for medical evaluation. Recommend CBC at that time due to anemia. See orders for details. Time spent with patient: discharge greater than 30 minutes Resuscitation Status: Full Code Discharge Plan - Discharge Disposition Discharge Date: 12/27/17 Disposition: Discharged Home, Self-Care *Condition: Stable Reason For Visit (Visit label in EMR): upper gi bleed - Discharge Medications *Discharge Medications: New Omeprazole 40 mg PO BID #60 cap PEG 3350 17gm PACKET [Miralax] 17 gm PO DAILY packet Sucralfate [Carafate] 1 gm PO ACHS #120 tab Metoclopramide [Reglan] 5 mg PO ACHS PRN #30 tab PRN Reason: Nausea Continue Terazosin [Hytrin] 5 mg PO HS Melatonin 5 mg PO HS Lutein 6 mg PO BID Tamsulosin [Flomax] 0.4 mg PO HS Atenolol [Tenormin] 50 mg PO HS Discontinued Linaclotide [Linzess] 145 mcg PO DAILY Aspirin 81 mg PO DAILY Benazepril HCl [Lotensin] 40 mg PO HS - Discharge Packet/Instructions *Diet: Low sodium. Small, frequent meals. *Activity: As tolerated. *Pain Management/Treatment: May use Tylenol for pain. Avoid other over the counter pain medications due to ulcer. *Wound Care: N/A Additional Instructions: Use omprazole (Prilosec) 40mg twice a day to heal ulcer. Use for 1 month, then could decrease to once a day. Check rose of over the counter omprazole versus prescription; use whichever is less expensive. Use Sucrafate 1 gram before meals and at bed time to heal ulcer. May use Reglan 5mg before meals (up to 4 times a day) NEEDED for nausea. Stop Aspirin use due to ulcer. You blood pressure was low during the hospitalization. You may continue Atenolol, but hold on using lisinopril until you see Dr Saenz and have your blood pressure checked. Do monitor blood pressure at home. Use Miralax daily in place of Linzess to help with constipation. *Expected Signs/Symptoms: Decrease nausea. Healing of ulcer. *Notify Physician if: Temp > 100.4. Passing dark, tarry, black stools. Uncontrolled nausea. *During Business Hours Contact: Dr Saenz *After Business Hours Contact: [place] [facility] [place] Saenz contacted. *Pending Lab/Results: Follow up w/Provider - Referrals/Follow Up *Referrals/Follow Up: Bari Saenz MD [Primary Care Provider] - 1 Week (Call Dr Saenz's office on Friday to set up hospital follow up. Would recommend rechecking CBC seondary to anemia. Check blood pressure - lisinopril on hold due to low BP and orthostasis seen initailly during hospitalization. ) Abhi Sweeney MD [Physician] - 1 Week (Call Dr Sweeney's office on Friday to schedule hospital follow up appointment to discuss pathology report. ) - Patient Handouts - Dismissal Complete Discharge Instructions are:: Complete Physician Narrative - Narrative Physician: Yg Peralta MD Attestation Narrative: Date: 12/27/17 Time: 2025 I have independently interviewed and examined patient prior to discharge. See my progress note for details. Medically stable for discharge to home.
== END 2017-12-27 14:40 | disposition home or self-care (01) | DRG 378 ==
LOC: ED 15:32 → CCU 15:32 → SUATTDRO 12-23 10:21 → MED 12-24 14:58
PROVIDERS: ADMIT Internal Medicine; ATTEND Hospitalist
PROC: END.EGD (2017-12-23 10:30)